=== PATIENT | male | born 1975 | race Two or more races ===

== ENCOUNTER 2019-04-02 11:22 | Inpatient (IN) | payer OTHER ==
[2019-04-02 15:53] VITALS: BMI 20.7
--- NOTE | 2019-04-02 17:26 | HP ---
"COWS - Scale Resting Pulse: 0= MI 80 or Below Sweatin=Flushed/Facial Moisture Restless Observation: 1= Difficult to Sit Still Pupil Size: 1= Pupils >than Normal (Pupils = 3 mm) Bone or Joint Aches: 1= Mild Discomfort Runny Nose/ Eye Tearin= None GI Upset > 30mins: 1= Stomach Cramp Tremor Observation: 4= Gross Tremor/Twitching Yawning Observation: 0= None Anxiety or Irritability: 1=Feels Anxious/Irritable Goose Flesh Skin: 0=Smooth Skin COWS Score: 11 CIWA Score Nausea/Vomitin Muscle Tremors: 4-Moderate,w/Arms Extend Anxiety: 3 Agitation: 1-Slight > Activity Paroxysmal Sweats: 3 (Increased facial moisture) Orientation: 1-Uncertain about Date Tacttile Disturbances: 0-None Auditory Disturbances: 0-None Visual Disturbances: 2-Mild Sensitivity Headache: 2-Mild CIWA-Ar Total Score: 19 - Admission Criteria OASAS Guidelines: Admission for Medically Managed Detox: Requires at least one of the followin. CIWA greater than 12 2. Seizures within the past 24 hours 3. Delirium tremens within the past 24 hours 4. Hallucinations within the past 24 hours 5. Acute intervention needed for co occurring medical disorder 6. Acute intervention needed for co occurring psychiatric disorder 7. Severe withdrawal that cannot be handled at a lower level of care (continued vomiting, continued diarrhea, abnormal vital signs) requiring intravenous medication and/or fluids 8. Patient presents the following: CIWA greater than 12 Admission Criteria Met: Admission criteria met Admission ROS [facility] Chief Complaint: I need detox from heroin, cocaine, and alcohol. Allergies/Adverse Reactions: Allergies Allergy/AdvReac Type Severity Reaction Status Date / Time Fish Containing Products Allergy Severe Rash Verified 04/02/19 15:41 No Known Drug Allergies Allergy Verified 04/02/19 15:41 History of Present Illness: 43 yo presents w/alcohol and opioid withdrawal symptoms seeking detox. Seen in [facility] ED and discharged today w/ a dx abscess (R) finger and started on Augmentin 875 mg PO BID. [place] made arrangements for patient to be brought to [facility] for detox. UTox: ADALBERTO/MOP/OXY/MTD PENNY: 0.0 Alcohol use since age 20. Currently drinks 1 pint vodka daily x 3 years Xanax use since age 17. States last used yesterday - states 3 sticks 2-3 days/ week. Cocaine use since age 20. Currently uses 8 bags IV daily x 5 years. Heroin/opiate use since age 20. Currently uses 8 bags IV daily x 5 years. States does not share needles or works. Sometimes reuses needles. Methadone 80 mg Daily. On [facility] MMTP. States last medicated yesterday. States has a Narcan kit. Nicotine use since age 14. Currently 3-4 cig/day. Denies seizures, blackouts. Overdose 6 months ago. States saved by 'somebody in the street'. PMHx: Abscess; (L) side heart bigger than (R) side MHHx: Anxiety; Depression. Denies thoughts of harming self or others. Last saw psychiatrist 1.5 months ago. States no meds now because homeless. SHx: Homeless/Undomiciled x 3 years. Unemployed. . Search Terms: Natividad Hayes, 1975 Search Date: 04/02/2019 05:20:15 PM The Drug Utilization Report below displays all of the controlled substance prescriptions, if any, that your patient has filled in the last twelve months. The information displayed on this report is compiled from pharmacy submissions to the Department, and accurately reflects the information as submitted by the pharmacies. This report was requested by: Khadijah Peace | Reference #: [id number] There are no results for the search terms that you entered. Search Terms: Natividad Farooqarez, 1975 Search Date: 04/02/2019 05:20:56 PM States Searched: [place], [place], [place], [place], [place], [place], [place], [place] The Drug Utilization Report below displays the controlled substance prescriptions, if any, that were dispensed in the indicated state(s). The information displayed on this report is compiled from requests submitted to other states' PMPs, and accurately reflects the information as returned by them. Blank moran indicate data not provided by other state. This report was requested by: Khadijah Peace | Reference #: [id number] There are no results for the search terms that you entered. Exam Limitations: No Limitations - Ebola screening Have you traveled outside of the country in the last 21 days: No Have you had contact with anyone from an Ebola affected area: No Have you been sick,other than usual withdrawal symptoms: Yes (Seen in ER for pain in (R) hand) Do you have a fever: No - Review of Systems Constitutional: Chills, Diaphoresis, Changes in sleep (Diifficulty staying asleep), Unintentional Wgt. Loss (r/t drug use) EENT: reports: Dental Problems (Missing teeth.), Other (Increased light sensitivity x 5 years. Has not seen an opthamologist. Encouraged to see one upon discharge.) Respiratory: reports: No Symptoms reported Cardiac: reports: No Symptoms Reported, See HPI GI: reports: Constipated (Last BN 2 days ago. Not on meds. Denies blood), Abdominal cramping : reports: No Symptoms Reported Musculoskeletal: reports: Back Pain (r/t sleeping in street) Integumentary: reports: Other (sore on foot) Neuro: reports: Headache ((R) temporal throbbing medium headache) Endocrine: reports: Increased Thirst Hematology: reports: No Symptoms Reported Psychiatric: reports: Orientated x3 (Missed date by 2), Anxious, Depressed ( Denies thoughts of harming self or others.) Patient History - Patient Medical History Hx Asthma: No Hx Chronic Obstructive Pulmonary Disease (COPD): No Hx Cardiac Disorders: No Hx Hypertension: No Hx Seizures: No Hx Diabetes: No Hx Gastrointestinal Disorders: No Hx Genitourinary Disorders: No Hx Sexually Transmitted Disorders: No Hx Renal Disease (ESRD): No Hx Human Immunodeficiency Virus (HIV): No Hx Hepatitis C: No Hx Depression: Yes (AND ANXIETY) Hx Suicide Attempt: No Hx Schizophrenia: No - Patient Surgical History Past Surgical History: Yes Hx Neurologic Surgery: No Hx Cataract Extraction: No Hx Cardiac Surgery: No Hx Lung Surgery: No Hx Breast Surgery: No Hx Breast Biopsy: No Hx Abdominal Surgery: No Hx Appendectomy: Yes (IN 1991) Hx Cholecystectomy: No Hx Genitourinary Surgery: No Hx Section: No Hx Orthopedic Surgery: No Other Surgical History: RT. INGUINAL HERNIA REPAIR IN 1991 - PPD History Previous Implant?: Yes ([address] [place] [address] - neg) Documented Results: Negative w/proof Implanted On Prior [facility] Admission?: Yes Date: 08/07/14 PPD to be Administered?: Yes - Smoking Cessation Smoking history: Current every day smoker Have you smoked in the past 12 months: Yes Aproximately how many cigarettes per day: 4 Hx Chewing Tobacco Use: No Initiated information on smoking cessation: Yes 'Breaking Loose' booklet given: 04/02/19 - Substance & Tx. History Hx Alcohol Use: Yes Hx Substance Use: Yes Substance Use Type: Alcohol, Cocaine, Heroin Hx Substance Use Treatment: Yes (detox, rehab. Currently on MMTP) - Substances abused Alprazolam (Xanax) Frequency: Daily Amount used: 3 pills Age of first use: 17 Date of last use: 04/01/19 Heroin Substance route: Injection Frequency: Daily Amount used: 8 bags Age of first use: 20 Date of last use: 04/01/19 Cocaine Substance route: Injection Frequency: Daily Amount used: 8 bags Age of first use: 20 Date of last use: 04/02/19 Alcohol Substance route: Oral Frequency: Daily Amount used: 1 pint of vodka Age of first use: Date of last use: 04/02/19 Admission Physical Exam [facility] - Vital Signs Vital Signs: Vital Signs - 24 hr 04/02/19 15:40 Temperature 97.5 F L Pulse Rate 66 Respiratory 20 Rate Blood Pressure 132/85 - Physical General Appearance: Yes: Mild Distress, Thin, Tremorous (Tremors w/ arms elevated), Sweating (Increased facial moisture), Anxious HEENTM: Yes: EOMI (Jerking movement of eyes upon lateral gaze), Hearing grossly Normal, Normocephalic, Normal Voice, SHREYAS (Pupils = 3 mm), Pharynx Normal, Other Respiratory: Yes: Lungs Clear (Pulse Ox = 99 %), Normal Breath Sounds, No Respiratory Distress Neck: Yes: No masses,lesions,Nodules, Supple Breast: Yes: Breast Exam Deferred Cardiology: Yes: Regular Rhythm, Regular Rate, S1, S2, Murmur Abdominal: Yes: Non Tender, Flat, Soft, Increased Bowel Sounds Genitourinary: Yes: Within Normal Limits Back: Yes: Normal Inspection Musculoskeletal: Yes: full range of Motion, Gait Steady Extremities: Yes: Normal Capillary Refill, Tremors, Swelling ((R) ring finger tip w/ yellowish undercolor at nail and nail bed, increased swelling, warmth, erythema tenderness), Other ((R) heel w/ soft, whitish oval lesion, aprox 1 cm w /o surrounding erythema or increased warmth.) 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 Needs dose verification. (3) Opioid dependence with withdrawal Current Visit: Yes Status: Acute Comment: Uses illicit opiates IV (4) Cardiac murmur Current Visit: Yes Status: Chronic (5) Nystagmus Current Visit: Yes Status: Acute (6) Cocaine dependence, uncomplicated Current Visit: Yes Status: Chronic Comment: Uses IV (7) Paronychia of finger of right hand Current Visit: Yes Status: Acute (8) Heel lesion Current Visit: Yes Status: Chronic Cleared for Admission [facility] - Detox or Rehab [facility] Level of Care: Medically Managed Detox Regimen/Protocol: Librium Claeared for Rehab Admission: No Breathalyzer - Breathalyzer Breathalyzer: 0 Urine Drug Screen - Test Device Lot number: [id number] Expiration date: 12/04/20 - Control Is test valid?: Yes - Results Drug screen NEGATIVE: No Urine drug screen results: ADALBERTO-Cocaine, MOP-Opiates, OXY-Oxycodone, MTD- Methadone Inpatient Rehab Admission - Rehab Decision to Admit Inpatient rehab admission?: No"
[2019-04-02] MEDS ORDERED: MAG HYDROX/AL HYDROX/SIMETH 30 ML UNIT-DOSE CUP PO PRN (18:07)
[2019-04-02] MEDS ORDERED: MAGNESIUM HYDROX 2400MG/30ML ORAL SUSPENSION 30 ML CUP PO PRN (18:07)
[2019-04-02] MEDS ORDERED: NICOTINE POLACRILEX 2 MG GUM BUC PRN (18:07)
[2019-04-02] MEDS ORDERED: MENTHOL/PHENOL 1 EACH UD MM PRN (18:07)
[2019-04-02] MEDS ORDERED: MAGNESIUM CITRATE 300 ML BOTTLE PO PRN (18:07)
[2019-04-02] MEDS ORDERED: ACETAMINOPHEN 325 MG TABLET (FP) PO PRN ×2 (18:07)
[2019-04-02] MEDS ORDERED: chlordiazePOXIDE HCL 10 MG CAPSULE PO PRN (18:07)
[2019-04-02] MEDS ORDERED: BISMUTH SUBSALICYLATE 524 MG/30 ML UD PO PRN (18:07)
[2019-04-02] MEDS ORDERED: METHADONE HCL 10 MG TABLET PO ONE (22:00)
[2019-04-02] MEDS: AMOX TR/POT CLAV 875MG/125MG TABLETS (FP) PO SCH (22:08)
[2019-04-02] MEDS: chlordiazePOXIDE HCL 25 MG CAPSULE PO SCH (22:08)
[2019-04-02] MEDS: THIAMINE HCL 100 MG TABLET (FP) PO SCH (22:09)
[2019-04-02] MEDS: MELATONIN 5 MG TABLETS PO PRN (22:09)
[2019-04-03] MEDS: chlordiazePOXIDE HCL 25 MG CAPSULE PO SCH ×3 (05:46→21:47)
[2019-04-03 10:24] LABS: ALBUMIN 3.5 g/dl (3.4-5.0); BILIRUBIN,TOTAL 0.8 mg/dL (0.2-1); BLOOD UREA NITROGEN 9.5 mg/dL (7-18); CALCIUM 8.8 mg/dL (8.5-10.1); CREATININE 0.8 mg/dL (0.55-1.3); POTASSIUM 3.9 mmol/L (3.5-5.1); TOT PROT 6.6 g/dl (6.4-8.2)
[2019-04-03] MEDS: PRENATAL VITAMINS W/ FOLIC ACID TABLET (FP) PO SCH (10:32)
[2019-04-03] MEDS: METHADONE HCL 40 MG DISPERSABLE TABLET PO SCH (10:32)
[2019-04-03] MEDS: AMOX TR/POT CLAV 875MG/125MG TABLETS (FP) PO SCH ×2 (10:32→21:47)
[2019-04-03 10:33] LABS: MCH 32.3 pg (25.7-33.7); MCHC 33.4 g/dl (32.0-35.9); MEAN CELL VOLUME 96.8 fl (80-96); MEAN PLT VOLUME 9.1 fl (7.5-11.1); PLATELET COUNT 249 K/MM3 (134-434); RBC 3.72 M/mm3 (4.00-5.60); RDW 13.4 % (11.9-15.9); WHITE BLOOD COUNT 5.4 K/mm3 (4.0-10.0)
--- NOTE | 2019-04-03 11:38 | CONSULT ---
[facility] Psychiatric Consult - Data Date of interview: 04/03/19 Admission source: [facility] Identifying data: Readmission to [facility] for this 43 y/o male self- referred fore detoxification. MARGUERITE issues : heroin, benzodiazepine, cocaine, cannabis, nicotine). Interviewed at [address] [place] [address]. Patient is single, father of one, homeless, unemployed and deprived of income. Substance Abuse History: Discussed in this session. Details in current [facility] report as follows : Smoking history: Current every day smoker. Have you smoked in the past 12 months: Yes. Aproximately how many cigarettes per day: 4. Hx Chewing Tobacco Use: No. Initiated information on smoking cessation: Yes. ' Breaking Loose' booklet given: 04/02/19. - Substance & Tx. History. Hx Alcohol Use: Yes. Hx Substance Use: Yes. Substance Use Type: Alcohol, Cocaine , Heroin. Hx Substance Use Treatment: Yes (detox, rehab. Currently on MMTP). - Substances abused. Alprazolam (Xanax). Frequency: Daily. Amount used: 3 pills. Age of first use: 17. Date of last use: 04/01/19. Heroin. Substance route: Injection. Frequency: Daily. Amount used: 8 bags. Age of first use: 20. Date of last use: 04/01/19. Cocaine. Substance route: Injection. Frequency: Daily. Amount used: 8 bags. Age of first use: 20. Date of last use: 04/02/19. Alcohol. Substance route: Oral. Frequency: Daily. Amount used: 1 pint of vodka. Age of first use: 20. Date of last use: 04/02/19 Medical History: Remarkable for a history of right inguinal herniorraphy. Current infection of the fourth finger of right hand (paronychia). Psychiatric History: Vague and evasive historian. No reported history of psychiatric hospitalizations. Patient states that he sees a psychiatrist at a venue called [facility] in the [place]. Medicated with seroquel + Buspar. Reportedly diagnosed with MDD and Anxiety. Currently on methadone maintenance ( 80 mg/day). Mr Hayes denies history of suicide attempts. Physical/Sexual Abuse/Trauma History: Patient denies. Additional Comment: Urine drug screen results: ADALBERTO-Cocaine, MOP-Opiates, OXY- Oxycodone, MTD-Methadone. Noted. Mental Status Exam - Mental Status Exam Alert and Oriented to: Time, Place, Person Cognitive Function: Good Patient Appearance: Well Groomed Mood: Nervous, Withdrawn, Hopeful Affect: Appropriate, Normal Range Patient Behavior: Fatigued, Cooperative Speech Pattern: Clear Voice Loudness: Normal Thought Process: Goal Oriented Thought Disorder: Not Present Hallucinations: Denies Suicidal Ideation: Denies Insight/Judgement: Poor Sleep: Poorly, Difficulty falling asleep Appetite: Good Muscle strength/Tone: Normal Gait/Station: Normal Psychiatric Findings - Problem List ([place] 1, 2,3) (1) Alcohol dependence with uncomplicated withdrawal Current Visit: Yes Status: Acute (2) Opioid dependence on agonist therapy Current Visit: Yes Status: Chronic (3) Benzodiazepine dependence Current Visit: Yes Status: Chronic (4) Cocaine dependence, uncomplicated Current Visit: Yes Status: Chronic Comment: Uses IV (5) Nicotine dependence Current Visit: Yes Status: Chronic (6) Substance induced mood disorder Current Visit: Yes Status: Chronic (7) Insomnia Current Visit: Yes Status: Chronic - Initial Treatment Plan Initial Treatment Plan: Psychoeducation. Sleep hygiene. Detoxification. AA/NA meetings. Seroquel is held (abnormal liver function). Buspar 5 mg po tid is ordered at patient's request. Side effects/benefits discussed with patient. Verbal consent given to MD. Jain.
[2019-04-03] MEDS ORDERED: FLU VACCINE QUAD 60 MCG/0.5 ML (MDV 19-20) IM ONE (12:00)
[2019-04-03] MEDS: BACITRACIN/POLYMYXIN B SULFATE 15 GM TUBE TP SCH ×2 (13:26→21:47)
--- NOTE | 2019-04-03 13:58 | PN ---
[facility] CIWA - CIWA Score Nausea/Vomitin-No Nausea/No Vomiting Muscle Tremors: 3 Anxiety: 3 Agitation: 3 Paroxysmal Sweats: 2 Orientation: 0-Oriented Tacttile Disturbances: 0-None Auditory Disturbances: 2-Mild Harshness/Frighten Visual Disturbances: 0-None Headache: 1-Very Mild CIWA-Ar Total Score: 14 S COWS - Scale Resting Pulse: 1= [place] 81-100 Sweatin= Chills/Flushing Restless Observation: 1= Difficult to Sit Still Pupil Size: 0= Normal to Room Light Bone or Joint Aches: 2= Severe Diffuse Aches Runny Nose/ Eye Tearin= None GI Upset > 30mins: 0= None Tremor Observation of Outstretched Hands: 2= Slight Tremor Visible Yawning Observation: 1= 1-2x During Session Anxiety or Irritability: 2=Irritable/Anxious Goose Flesh Skin: 3=Piloerection COWS Score: 13 S Progress Note (SOAP) Subjective: Body Aches, Tremors, Anxious, Sweating. Objective: PATIENT A & O X 3, OBSERVED AMBULATING ON DETOX UNIT UNASSISTED. IN NO ACUTE DISTRESS. 04/03/19 13:56 Vital Signs Temperature 97.2 F L 04/03/19 13:07 Pulse Rate 81 04/03/19 13:07 Respiratory Rate 16 04/03/19 13:07 Blood Pressure 105/76 04/03/19 13:07 O2 Sat by Pulse Oximetry (%) Laboratory Tests 04/03/19 04/03/19 04/03/19 07:40 07:40 07:40 WBC 5.4 RBC 3.72 L Hgb 12.0 Hct 36.0 MCV 96.8 H MCH 32.3 MCHC 33.4 RDW 13.4 Plt Count 249 MPV 9.1 Sodium 141 Potassium 3.9 Chloride 106 Carbon Dioxide 28 Anion Gap 7 L BUN 9.5 Creatinine 0.8 Est GFR (CKD-EPI)AfAm 125.04 Est GFR (CKD-EPI)NonAf 107.88 Random Glucose 116 H Calcium 8.8 Total Bilirubin 0.8 AST 186 H ALT 320 H Alkaline Phosphatase 101 Total Protein 6.6 Albumin 3.5 RPR Titer Nonreactive LABS NOTED. Assessment: 04/03/19 13:57 WITHDRAWAL SYMPTOMS. ELEVATED AST LEVEL. ELEVATED ALT LEVEL. Plan: CONTINUE DETOX. REPEAT AST AND ALT LEVELS ORDERED FOR TOMORROW FOR ELEVATED AST AND ALT LEVELS NOTED ON DETOX ADMISSION LABORATORY ASSESSMENT.
[2019-04-03] MEDS: NICOTINE 14 MG/24 HOURS TOPICAL PATCH TD SCH (14:54)
[2019-04-03] MEDS: busPIRone HCL 5 MG TABLET PO SCH (21:46)
[2019-04-03] MEDS: THIAMINE HCL 100 MG TABLET (FP) PO SCH (21:47)
[2019-04-03] MEDS: IBUPROFEN 600 MG TABLET (FP) PO PRN (23:15)
[2019-04-04] MEDS: chlordiazePOXIDE 5 MG CAPSULE PO SCH ×3 (05:40→21:58)
[2019-04-04] MEDS: METHADONE HCL 40 MG DISPERSABLE TABLET PO SCH (05:41)
[2019-04-04] MEDS: busPIRone HCL 5 MG TABLET PO SCH ×3 (05:43→21:58)
--- NOTE | 2019-04-04 10:04 | PN ---
[facility] CIWA - CIWA Score Nausea/Vomitin-Mild Nausea/No Vomiting Muscle Tremors: 3 Anxiety: 2 Agitation: 1-Slight > Activity Paroxysmal Sweats: 1-Minimal Palms Moist Orientation: 0-Oriented Tacttile Disturbances: 1-Very Mild Itch/Numbness Auditory Disturbances: 0-None Visual Disturbances: 0-None Headache: 2-Mild CIWA-Ar Total Score: 11 S Progress Note (SOAP) Subjective: doing well with librium detox regimen received methadone 80 mg po today feeling better sitting on the edge of the bed eating breakfast no trouble chewing no trouble swallowing Objective: 04/04/19 10:02 Vital Signs Temperature 97.9 F 04/04/19 09:34 Pulse Rate 67 04/04/19 09:34 Respiratory Rate 18 04/04/19 09:34 Blood Pressure 96/61 04/04/19 09:34 O2 Sat by Pulse Oximetry (%) Laboratory Last Values WBC 5.4 K/mm3 (4.0-10.0) 04/03/19 07:40 RBC 3.72 M/mm3 (4.00-5.60) L 04/03/19 07:40 Hgb 12.0 GM/dL (11.7-16.9) 04/03/19 07:40 Hct 36.0 % (35.4-49) 04/03/19 07:40 MCV 96.8 fl (80-96) H 04/03/19 07:40 MCH 32.3 pg (25.7-33.7) 04/03/19 07:40 MCHC 33.4 g/dl (32.0-35.9) 04/03/19 07:40 RDW 13.4 % (11.9-15.9) 04/03/19 07:40 Plt Count 249 K/MM3 (134-434) 04/03/19 07:40 MPV 9.1 fl (7.5-11.1) 04/03/19 07:40 Sodium 141 mmol/L (136-145) 04/03/19 07:40 Potassium 3.9 mmol/L (3.5-5.1) 04/03/19 07:40 Chloride 106 mmol/L (98-107) 04/03/19 07:40 Carbon Dioxide 28 mmol/L (21-32) 04/03/19 07:40 Anion Gap 7 MMOL/L (8-16) L 04/03/19 07:40 BUN 9.5 mg/dL (7-18) 04/03/19 07:40 Creatinine 0.8 mg/dL (0.55-1.3) 04/03/19 07:40 Est GFR (CKD-EPI)AfAm 125.04 04/03/19 07:40 Est GFR (CKD-EPI)NonAf 107.88 04/03/19 07:40 Random Glucose 116 mg/dL (74-106) H 04/03/19 07:40 Calcium 8.8 mg/dL (8.5-10.1) 04/03/19 07:40 Total Bilirubin 0.8 mg/dL (0.2-1) 04/03/19 07:40 AST 186 U/L (15-37) H 04/03/19 07:40 ALT 320 U/L (13-61) H 04/03/19 07:40 Alkaline Phosphatase 101 U/L (45-117) 04/03/19 07:40 Total Protein 6.6 g/dl (6.4-8.2) 04/03/19 07:40 Albumin 3.5 g/dl (3.4-5.0) 04/03/19 07:40 RPR Titer Nonreactive (NONREACTIVE) 04/03/19 07:40 lab noted ast elevation 04/04/19 10:02 repeat ast pending Assessment: 04/04/19 10:02 alcohol and benzo withdrawal sx Plan: continue librium detox regimen encourage to use ativan for alcohol and benzo detox regimen patient agree to consider the possibility of ativan
[2019-04-04] MEDS: AMOX TR/POT CLAV 875MG/125MG TABLETS (FP) PO SCH ×2 (10:12→21:58)
[2019-04-04] MEDS: PRENATAL VITAMINS W/ FOLIC ACID TABLET (FP) PO SCH (10:12)
[2019-04-04] MEDS: BACITRACIN/POLYMYXIN B SULFATE 15 GM TUBE TP SCH ×2 (10:13→21:57)
[2019-04-04] MEDS: IBUPROFEN 600 MG TABLET (FP) PO PRN (10:15)
[2019-04-04 10:52] LABS: SGOT/AST 170 U/L (15-37); SGPT/ALT 303 U/L (13-61)
[2019-04-04] MEDS: LIDOCAINE 5% TOPICAL PATCH TP SCH (11:44)
[2019-04-04] MEDS: METHOCARBAMOL 500 MG TABLET PO SCH ×2 (11:44→21:58)
[2019-04-04] MEDS: NICOTINE 14 MG/24 HOURS TOPICAL PATCH TD SCH (11:45)
[2019-04-04] MEDS: THIAMINE HCL 100 MG TABLET (FP) PO SCH (21:58)
[2019-04-04] MEDS: MELATONIN 5 MG TABLETS PO PRN (21:58)
[2019-04-04] MEDS: LIDOCAINE PATCH REMOVAL MC SCH (21:58)
[2019-04-04] MEDS ORDERED: QUEtiapine FUMARATE 50 MG TABLET PO ONE (22:00)
[2019-04-05] MEDS ORDERED: chlordiazePOXIDE HCL 10 MG CAPSULE PO PRN
[2019-04-05] MEDS: chlordiazePOXIDE HCL 10 MG CAPSULE PO SCH ×3 (05:43→22:14)
[2019-04-05] MEDS: busPIRone HCL 5 MG TABLET PO SCH ×3 (05:43→22:14)
[2019-04-05] MEDS: METHADONE HCL 40 MG DISPERSABLE TABLET PO SCH (05:44)
--- NOTE | 2019-04-05 09:38 | PN ---
[facility] CIWA - CIWA Score Nausea/Vomitin-No Nausea/No Vomiting Muscle Tremors: 2 Anxiety: 2 Agitation: 2 Paroxysmal Sweats: 1-Minimal Palms Moist Orientation: 0-Oriented Tacttile Disturbances: 1-Very Mild Itch/Numbness Auditory Disturbances: 0-None Visual Disturbances: 0-None Headache: 0-None Present CIWA-Ar Total Score: 8 S Progress Note (SOAP) Subjective: doing well with librium detox regimen ambulating on hallway ate breakfast discuss aftercare with staff patient prefers [facility] for alcohol and benzo recovery Objective: 04/05/19 09:40 Vital Signs Temperature 96.4 F L 04/05/19 09:06 Pulse Rate 75 04/05/19 09:06 Respiratory Rate 18 04/05/19 09:06 Blood Pressure 97/60 04/05/19 09:06 O2 Sat by Pulse Oximetry (%) Laboratory Last Values WBC 5.4 K/mm3 (4.0-10.0) 04/03/19 07:40 RBC 3.72 M/mm3 (4.00-5.60) L 04/03/19 07:40 Hgb 12.0 GM/dL (11.7-16.9) 04/03/19 07:40 Hct 36.0 % (35.4-49) 04/03/19 07:40 MCV 96.8 fl (80-96) H 04/03/19 07:40 MCH 32.3 pg (25.7-33.7) 04/03/19 07:40 MCHC 33.4 g/dl (32.0-35.9) 04/03/19 07:40 RDW 13.4 % (11.9-15.9) 04/03/19 07:40 Plt Count 249 K/MM3 (134-434) 04/03/19 07:40 MPV 9.1 fl (7.5-11.1) 04/03/19 07:40 Sodium 141 mmol/L (136-145) 04/03/19 07:40 Potassium 3.9 mmol/L (3.5-5.1) 04/03/19 07:40 Chloride 106 mmol/L (98-107) 04/03/19 07:40 Carbon Dioxide 28 mmol/L (21-32) 04/03/19 07:40 Anion Gap 7 MMOL/L (8-16) L 04/03/19 07:40 BUN 9.5 mg/dL (7-18) 04/03/19 07:40 Creatinine 0.8 mg/dL (0.55-1.3) 04/03/19 07:40 Est GFR (CKD-EPI)AfAm 125.04 04/03/19 07:40 Est GFR (CKD-EPI)NonAf 107.88 04/03/19 07:40 Random Glucose 116 mg/dL (74-106) H 04/03/19 07:40 Calcium 8.8 mg/dL (8.5-10.1) 04/03/19 07:40 Total Bilirubin 0.8 mg/dL (0.2-1) 04/03/19 07:40 AST 170 U/L (15-37) H 04/04/19 07:30 ALT 303 U/L (13-61) H 04/04/19 07:30 Alkaline Phosphatase 101 U/L (45-117) 04/03/19 07:40 Total Protein 6.6 g/dl (6.4-8.2) 04/03/19 07:40 Albumin 3.5 g/dl (3.4-5.0) 04/03/19 07:40 RPR Titer Nonreactive (NONREACTIVE) 04/03/19 07:40 lab noted ast gradually subsided to 170 right ring finger continue warm socks and augmentin po discharged with augmentin po and lab report to methadone maintenance program for ast follow up Assessment: 04/05/19 09:42 alcohol and benzo withdrawal sx Plan: continue librium detox regimen and methadone maintenance at 80mg po daily
[2019-04-05] MEDS: LIDOCAINE 5% TOPICAL PATCH TP SCH (10:12)
[2019-04-05] MEDS: PRENATAL VITAMINS W/ FOLIC ACID TABLET (FP) PO SCH (10:12)
[2019-04-05] MEDS: AMOX TR/POT CLAV 875MG/125MG TABLETS (FP) PO SCH ×2 (10:12→22:14)
[2019-04-05] MEDS: METHOCARBAMOL 500 MG TABLET PO SCH ×2 (10:12→22:14)
[2019-04-05] MEDS: NICOTINE 14 MG/24 HOURS TOPICAL PATCH TD SCH (10:13)
[2019-04-05] MEDS: BACITRACIN/POLYMYXIN B SULFATE 15 GM TUBE TP SCH ×2 (10:15→22:14)
--- NOTE | 2019-04-05 13:27 | EKG ---
Test Reason : Blood Pressure : / mmHG Vent. Rate : 054 BPM Atrial Rate : 054 BPM P-R Int : 122 ms QRS Dur : 096 ms QT Int : 462 ms P-R-T Axes : 069 073 070 degrees QTc Int : 438 ms SINUS BRADYCARDIA WITH SINUS ARRHYTHMIA INCOMPLETE RIGHT BUNDLE BRANCH BLOCK BORDERLINE ECG NO PREVIOUS ECGS AVAILABLE Confirmed by IFRAH MCCALL MD ([id number]) on 04/05/2019 1:27:23 PM Referred By: Confirmed By:IFRAH MCCALL MD
[2019-04-05 16:25] LABS: PH,URINE 5.5 (5.0-8.0); URINE APPEARANCE CLEAR; URINE BILIRUBIN NEGATIVE (NEGATIVE); URINE COLOR YELLOW; URINE GLUCOSE (UA) NEGATIVE (NEGATIVE); URINE KETONE NEGATIVE (NEGATIVE); URINE LEUK ESTERASE NEGATIVE (NEGATIVE); URINE NITRITE NEGATIVE (NEGATIVE); URINE PROTEIN NEGATIVE (NEGATIVE); URINE UROBILINOGEN 0.2 mg/dL (0.2-1.0)
[2019-04-05] MEDS: THIAMINE HCL 100 MG TABLET (FP) PO SCH (22:14)
[2019-04-05] MEDS: LIDOCAINE PATCH REMOVAL MC SCH (22:15)
[2019-04-05] MEDS: MELATONIN 5 MG TABLETS PO PRN (22:15)
[2019-04-06] MEDS ORDERED: chlordiazePOXIDE HCL 10 MG CAPSULE PO ONE (05:00)
[2019-04-06] MEDS: METHADONE HCL 40 MG DISPERSABLE TABLET PO SCH (05:13)
[2019-04-06] MEDS: busPIRone HCL 5 MG TABLET PO SCH (05:13)
[2019-04-06 06:01] VITALS: TEMP 98.2
[2019-04-06 09:04] VITALS: BP 107/74; PULSE 88
[2019-04-06] MEDS: AMOX TR/POT CLAV 875MG/125MG TABLETS (FP) PO SCH (10:18)
[2019-04-06] MEDS: METHOCARBAMOL 500 MG TABLET PO SCH (10:18)
[2019-04-06] MEDS: PRENATAL VITAMINS W/ FOLIC ACID TABLET (FP) PO SCH (10:18)
[2019-04-06] MEDS: NICOTINE 14 MG/24 HOURS TOPICAL PATCH TD SCH (10:19)
[2019-04-06] MEDS: LIDOCAINE 5% TOPICAL PATCH TP SCH (10:20)
--- NOTE | 2019-04-06 11:57 | DS ---
[facility] Detox Discharge Summary Admission Date: 04/02/19 Discharge Date: 04/06/19 - History Present History: Alcohol Dependence, Cocaine Dependence, Opioid Dependence, Sedative Dependence, MMTP Additional Comments: PATIENT GOING TO [facility] ([facility]) FOR AFTERCARE. PATIENT WAS DISCHARGED FROM DETOX UNIT TO BE TAKEN OVER TO REHAB UNIT IN STABLE MEDICAL CONDITION. Pertinent Past History: Depression, Anxiety, Heel Lesion, Paronychia Of Finger Of Right Hand, M.M.T.P., Nystagmus, Insomnia, Elevated AST Level, Elevated ALT Level. - Physical Exam Results Vital Signs: Vital Signs Temperature 98.2 F 04/06/19 09:03 Pulse Rate 88 04/06/19 09:03 Respiratory Rate 16 04/06/19 09:03 Blood Pressure 107/74 04/06/19 09:03 O2 Sat by Pulse Oximetry (%) Pertinent Admission Physical Exam Findings: WITHDRAWAL SYMPTOMS. Laboratory Tests 04/03/19 04/03/19 04/03/19 07:40 07:40 07:40 WBC 5.4 RBC 3.72 L Hgb 12.0 Hct 36.0 MCV 96.8 H MCH 32.3 MCHC 33.4 RDW 13.4 Plt Count 249 MPV 9.1 Sodium 141 Potassium 3.9 Chloride 106 Carbon Dioxide 28 Anion Gap 7 L BUN 9.5 Creatinine 0.8 Est GFR (CKD-EPI)AfAm 125.04 Est GFR (CKD-EPI)NonAf 107.88 Random Glucose 116 H Calcium 8.8 Total Bilirubin 0.8 AST 186 H ALT 320 H Alkaline Phosphatase 101 Total Protein 6.6 Albumin 3.5 Urine Color Urine Appearance Urine pH Ur Specific [place] Urine Protein Urine Glucose (UA) Urine Ketones Urine Blood Urine Nitrite Urine Bilirubin Urine Urobilinogen Ur Leukocyte Esterase RPR Titer Nonreactive 04/04/19 04/05/19 07:30 14:18 WBC RBC Hgb Hct MCV MCH MCHC RDW Plt Count MPV Sodium Potassium Chloride Carbon Dioxide Anion Gap BUN Creatinine Est GFR (CKD-EPI)AfAm Est GFR (CKD-EPI)NonAf Random Glucose Calcium Total Bilirubin AST 170 H ALT 303 H Alkaline Phosphatase Total Protein Albumin Urine Color Yellow Urine Appearance Clear Urine pH 5.5 D Ur Specific [place] 1.017 Urine Protein Negative Urine Glucose (UA) Negative Urine Ketones Negative Urine Blood Negative Urine Nitrite Negative Urine Bilirubin Negative Urine Urobilinogen 0.2 Ur Leukocyte Esterase Negative RPR Titer LABS NOTED. - Treatment Hospital Course: Detox Protocol Followed, Detoxed Safely, Responded well, Discharged Condition Good, Rehab Referral Accepted Patient has Accepted a Rehab Referral to: [facility] ([place], [place]). - Medication Discharge Medications: Ambulatory Orders Amox-Tr/K Cl [Augmentin 875-125mg Tablet -] 1 tab PO BID 04/02/19 Amox-Tr/K Cl [Augmentin 875-125mg Tablet -] 1 tab PO BID #10 tablet 04/05/19 - Diagnosis (1) Alcohol dependence with uncomplicated withdrawal Current Visit: Yes Status: Acute (2) Nystagmus Current Visit: Yes Status: Acute (3) Opioid dependence with withdrawal Current Visit: Yes Status: Acute (4) Paronychia of finger of right hand Current Visit: Yes Status: Acute (5) Cardiac murmur Current Visit: Yes Status: Chronic (6) Cocaine dependence, uncomplicated Current Visit: Yes Status: Chronic (7) Heel lesion Current Visit: Yes Status: Chronic (8) Methadone maintenance therapy patient Current Visit: Yes Status: Chronic (9) Benzodiazepine dependence Current Visit: Yes Status: Chronic (10) Insomnia Current Visit: Yes Status: Chronic Qualifiers: Insomnia type: unspecified Qualified Code(s): G47.00 - Insomnia, unspecified (11) Substance induced mood disorder Current Visit: Yes Status: Chronic (12) Elevated alanine aminotransferase (ALT) level Current Visit: Yes Status: Acute (13) Elevated aspartate aminotransferase level Current Visit: Yes Status: Acute - AMA Did Patient Leave Against Medical Advice: No S CIWA - CIWA Score Nausea/Vomitin-No Nausea/No Vomiting Muscle Tremors: None Anxiety: 2 Agitation: 0-Normal Activity Paroxysmal Sweats: No Perspiration Orientation: 0-Oriented Tacttile Disturbances: 0-None Auditory Disturbances: 0-None Visual Disturbances: 0-None Headache: 0-None Present CIWA-Ar Total Score: 2 S COWS - Scale Resting Pulse: 1= [place] 81-100 Sweatin= No chills or Flushing Restless Observation: 1= Difficult to Sit Still Pupil Size: 0= Normal to Room Light Bone or Joint Aches: 1= Mild Discomfort Runny Nose/ Eye Tearin= None GI Upset > 30mins: 0= None Tremor Observation of Outstretched Hands: 0= None Yawning Observation: 0= None Anxiety or Irritability: 2=Irritable/Anxious Goose Flesh Skin: 0=Smooth Skin COWS Score: 5
[2019-04-06] MEDS: BACITRACIN/POLYMYXIN B SULFATE 15 GM TUBE TP SCH (12:03)
== END 2019-04-06 12:07 | disposition other institution (70) | DRG 773 ==
LOC: YASAS 11:22 → Y3N 18:19
PROVIDERS: ADMIT Surgery; ATTEND Surgery
PROC: HZ2ZZZZ Detoxification Services for Substance Abuse Treatment (ICD-10-PCS; principal; 2019-04-02)
DX: F11.23 Opioid dependence with withdrawal (principal); F10.230 Alcohol dependence with withdrawal, uncomplicated; F13.230 Sedative, hypnotic or anxiolytic dependence with withdrawal, uncomplicated; F14.20 Cocaine dependence, uncomplicated; F17.210 Nicotine dependence, cigarettes, uncomplicated; F19.24 Other psychoactive substance dependence with psychoactive substance-induced mood disorder; H55.00 Unspecified nystagmus; R01.1 Cardiac murmur, unspecified; L03.011 Cellulitis of right finger; L98.8 Other specified disorders of the skin and subcutaneous tissue; G47.00 Insomnia, unspecified; R74.0 Nonspecific elevation of levels of transaminase and lactic acid dehydrogenase [LDH]; Z91.013 Allergy to seafood; Z59.0 Homelessness
CPT/HCPCS: 36415; 80053; 81003; 84450; 84460; 85027; 86593; 93005; 93010; G0008; Q2036

== ENCOUNTER 2019-04-06 12:41 | Inpatient (IN) | payer OTHER ==
--- NOTE | 2019-04-06 12:09 | HP ---
[facility] Rehab Assess/Revision - Admission History Ad[facility] to Rehab [facility] Date of Admission to Rehab: 04/06/2019 - Vital signs Vital Signs: NOTED; STABLE. - Findings Detox History & Physical reviewed: Yes Concur with findings: Yes Comments/Additional Findings: PATIENT'S MEDICAL / MEDICATION HISTORY REVIEWED PRIOR TO DISCHARGE FROM DETOX UNIT. WOUND CARE FOR ABSCESS OF RING FINGER OF RIGHT HAND (INCLUDING TOPICAL TREATMENT AND PO AUGMENTIN) AND FOR WOUND ON HEEL OF RIGHT FOOT TO CONTINUE FOR FIRST FEW DAYS OF ADMISSION TO REHAB UNIT. PATIENT WAS DISCHARGED FROM DETOX UNIT TO BE TAKEN OVER TO REHAB UNIT IN STABLE MEDICAL CONDITION. Inpatient Rehab Admission - Rehab Decision to Admit Inpatient rehab admission?: Yes - Initial Determination Are CD services needed?: Yes Free of communicable disease: Yes Not in need of hospitalization: Yes - Rehab Admission Criteria Previous failed treatment: Yes Poor recovery environment: Yes Comorbidities: Yes Lacks judgement: No Patient is meeting Inpatient Rehab admission criteria:: Yes
[~2019-04-06 12:41] MED LIST: MAG HYDROX/AL HYDROX/SIMETH 30 ML UNIT-DOSE CUP PO PRN; MAGNESIUM CITRATE 300 ML BOTTLE PO PRN; MAGNESIUM HYDROX 2400MG/30ML ORAL SUSPENSION 30 ML CUP PO PRN; MENTHOL/PHENOL 1 EACH UD MM PRN; NICOTINE POLACRILEX 2 MG GUM BUC PRN; P-EPHED 60MG/TRIPROLIDI 2.5MG TABLET PO PRN; guaiFENesin 200 MG/10 ML 10 ML UNIT-DOSE CUPS PO PRN
[2019-04-06] MEDS: IBUPROFEN 400 MG TABLET (FP) PO PRN ×2 (14:31→23:50)
--- NOTE | 2019-04-06 15:27 | PN ---
[facility] Progress Note Note: Pt is a 43 y/o pt admitted this afternoon from [address] [place] [address] to rehab. Pt is c /o body/back pain and requesting for muscle relaxer. Oob ambulating with steady gait but appears thin, fatigue and in pain. pt is on Augmentin 875 mg po bid x 4 more days for abscess of right ring finger and wound of right heel a per detox note/MD Re-Assessment document. Vital Signs - 24 hr 04/06/19 12:49 Temperature 97.5 F L Pulse Rate 81 Respiratory 18 Rate Blood Pressure 96/69 A/P s/p detox body aches wound of right heel abscess of right ring finger Motrin prn for pain add flexeril 10 mg po tid prn for muscle spasms increase po fluids as tolerated. Continue Abx tx till finishe. bacitracin ointment to affected areas as directed.
[2019-04-06] MEDS ORDERED: AMOX TR/POT CLAV 875MG/125MG TABLETS (FP) ONE (18:32)
[2019-04-06] MEDS: AMOX TR/POT CLAV 875MG/125MG TABLETS (FP) PO SCH (18:33)
[2019-04-06] MEDS: BACITRACIN/POLYMYXIN B SULFATE 15 GM TUBE TP SCH (21:48)
[2019-04-06] MEDS: MELATONIN 5 MG TABLETS PO PRN (21:49)
[2019-04-06] MEDS: THIAMINE HCL 100 MG TABLET (FP) PO SCH (21:49)
[2019-04-06] MEDS ORDERED: CYCLOBENZAPRINE HCL 10 MG TABLET (FP) ONE (21:50)
[2019-04-06] MEDS: CYCLOBENZAPRINE HCL 10 MG TABLET (FP) PO PRN (21:51)
[2019-04-07] MEDS: AMOX TR/POT CLAV 875MG/125MG TABLETS (FP) PO SCH ×2 (07:03→16:59)
[2019-04-07] MEDS: METHADONE HCL 40 MG DISPERSABLE TABLET PO SCH (07:03)
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
[2019-04-07] MEDS: PRENATAL VITAMINS W/ FOLIC ACID TABLET (FP) PO SCH (10:21)
[2019-04-07] MEDS: BACITRACIN/POLYMYXIN B SULFATE 15 GM TUBE TP SCH ×2 (10:21→21:43)
[2019-04-07] MEDS: NICOTINE 14 MG/24 HOURS TOPICAL PATCH TD SCH (10:21)
[2019-04-07] MEDS: CYCLOBENZAPRINE HCL 10 MG TABLET (FP) PO PRN ×2 (10:22→21:45)
[2019-04-07] MEDS: busPIRone HCL 5 MG TABLET PO SCH ×2 (14:59→21:44)
[2019-04-07] MEDS: BENZOCAINE 20 % GEL TUBE MM SCH ×2 (16:57→21:42)
[2019-04-07] MEDS: QUEtiapine FUMARATE 100 MG TABLET (FP) PO SCH (21:42)
[2019-04-07] MEDS: THIAMINE HCL 100 MG TABLET (FP) PO SCH (21:44)
[2019-04-07] MEDS: MELATONIN 5 MG TABLETS PO PRN (21:44)
[2019-04-08] MEDS: METHADONE HCL 40 MG DISPERSABLE TABLET PO SCH (06:58)
[2019-04-08] MEDS: busPIRone HCL 5 MG TABLET PO SCH ×3 (06:58→21:58)
[2019-04-08] MEDS: CYCLOBENZAPRINE HCL 10 MG TABLET (FP) PO PRN ×3 (07:01→22:00)
[2019-04-08] MEDS: BENZOCAINE 20 % GEL TUBE MM SCH ×4 (07:02→21:57)
[2019-04-08] MEDS: AMOX TR/POT CLAV 875MG/125MG TABLETS (FP) PO SCH ×2 (07:03→17:00)
[2019-04-08] MEDS: NICOTINE 14 MG/24 HOURS TOPICAL PATCH TD SCH (10:08)
[2019-04-08] MEDS: BACITRACIN/POLYMYXIN B SULFATE 15 GM TUBE TP SCH ×2 (10:10→21:58)
[2019-04-08] MEDS: PRENATAL VITAMINS W/ FOLIC ACID TABLET (FP) PO SCH (11:08)
[2019-04-08] MEDS: THIAMINE HCL 100 MG TABLET (FP) PO SCH (21:58)
[2019-04-08] MEDS: QUEtiapine FUMARATE 100 MG TABLET (FP) PO SCH (21:58)
[2019-04-09] MEDS: BENZOCAINE 20 % GEL TUBE MM SCH ×4 (04:00→21:48)
[2019-04-09] MEDS: METHADONE HCL 40 MG DISPERSABLE TABLET PO SCH (06:46)
[2019-04-09] MEDS: CYCLOBENZAPRINE HCL 10 MG TABLET (FP) PO PRN ×3 (06:47→21:47)
[2019-04-09] MEDS: busPIRone HCL 5 MG TABLET PO SCH ×3 (06:48→21:47)
[2019-04-09] MEDS: AMOX TR/POT CLAV 875MG/125MG TABLETS (FP) PO SCH ×2 (07:24→17:42)
[2019-04-09] MEDS: NICOTINE 14 MG/24 HOURS TOPICAL PATCH TD SCH (10:54)
[2019-04-09] MEDS: PRENATAL VITAMINS W/ FOLIC ACID TABLET (FP) PO SCH (10:54)
[2019-04-09] MEDS: BACITRACIN/POLYMYXIN B SULFATE 15 GM TUBE TP SCH ×2 (10:54→21:48)
[2019-04-09] MEDS: QUEtiapine FUMARATE 100 MG TABLET (FP) PO SCH (21:47)
[2019-04-09] MEDS: THIAMINE HCL 100 MG TABLET (FP) PO SCH (21:47)
[2019-04-10] MEDS: BENZOCAINE 20 % GEL TUBE MM SCH ×4 (05:19→21:47)
[2019-04-10] MEDS: METHADONE HCL 40 MG DISPERSABLE TABLET PO SCH (06:50)
[2019-04-10] MEDS: CYCLOBENZAPRINE HCL 10 MG TABLET (FP) PO PRN ×3 (06:51→21:47)
[2019-04-10] MEDS: busPIRone HCL 5 MG TABLET PO SCH ×3 (06:51→21:47)
[2019-04-10] MEDS: AMOX TR/POT CLAV 875MG/125MG TABLETS (FP) PO SCH (07:05)
[2019-04-10] MEDS: BACITRACIN/POLYMYXIN B SULFATE 15 GM TUBE TP SCH ×2 (10:48→21:48)
[2019-04-10] MEDS: PRENATAL VITAMINS W/ FOLIC ACID TABLET (FP) PO SCH (10:48)
[2019-04-10] MEDS: NICOTINE 14 MG/24 HOURS TOPICAL PATCH TD SCH (10:48)
[2019-04-10] MEDS: THIAMINE HCL 100 MG TABLET (FP) PO SCH (21:47)
[2019-04-10] MEDS: QUEtiapine FUMARATE 100 MG TABLET (FP) PO SCH (21:47)
[2019-04-11] MEDS: BENZOCAINE 20 % GEL TUBE MM SCH ×4 (06:07→21:46)
[2019-04-11] MEDS: busPIRone HCL 5 MG TABLET PO SCH ×3 (06:52→21:44)
[2019-04-11] MEDS: CYCLOBENZAPRINE HCL 10 MG TABLET (FP) PO PRN ×3 (06:52→21:45)
[2019-04-11] MEDS: METHADONE HCL 40 MG DISPERSABLE TABLET PO SCH (06:53)
[2019-04-11] MEDS: PRENATAL VITAMINS W/ FOLIC ACID TABLET (FP) PO SCH (10:40)
[2019-04-11] MEDS: NICOTINE 14 MG/24 HOURS TOPICAL PATCH TD SCH (10:40)
[2019-04-11] MEDS: IBUPROFEN 400 MG TABLET (FP) PO PRN (10:41)
[2019-04-11] MEDS: BACITRACIN/POLYMYXIN B SULFATE 15 GM TUBE TP SCH (10:42)
[2019-04-11] MEDS: QUEtiapine FUMARATE 100 MG TABLET (FP) PO SCH (21:44)
[2019-04-11] MEDS: THIAMINE HCL 100 MG TABLET (FP) PO SCH (21:44)
[2019-04-11] MEDS: MELATONIN 5 MG TABLETS PO PRN (21:45)
[2019-04-12] MEDS: BENZOCAINE 20 % GEL TUBE MM SCH ×4 (04:42→21:47)
[2019-04-12] MEDS: busPIRone HCL 5 MG TABLET PO SCH ×3 (06:41→21:49)
[2019-04-12] MEDS: CYCLOBENZAPRINE HCL 10 MG TABLET (FP) PO PRN ×3 (06:41→21:48)
[2019-04-12] MEDS: METHADONE HCL 40 MG DISPERSABLE TABLET PO SCH (06:42)
[2019-04-12] MEDS: PRENATAL VITAMINS W/ FOLIC ACID TABLET (FP) PO SCH (10:40)
[2019-04-12] MEDS: NICOTINE 14 MG/24 HOURS TOPICAL PATCH TD SCH (10:40)
[2019-04-12] MEDS: LOPERAMIDE HCL 2 MG CAPSULE PO PRN ×2 (11:45→21:50)
[2019-04-12] MEDS: METHYL SALICYLATE/MENTHOL OINT 30 GM TUBE TP SCH ×2 (14:37→21:47)
[2019-04-12] MEDS: THIAMINE HCL 100 MG TABLET (FP) PO SCH (21:48)
[2019-04-12] MEDS: QUEtiapine FUMARATE 100 MG TABLET (FP) PO SCH (21:49)
[2019-04-12] MEDS: MELATONIN 5 MG TABLETS PO PRN (21:49)
[2019-04-13] MEDS: busPIRone HCL 5 MG TABLET PO SCH ×3 (06:28→21:44)
[2019-04-13] MEDS: METHADONE HCL 40 MG DISPERSABLE TABLET PO SCH (06:28)
[2019-04-13] MEDS: BENZOCAINE 20 % GEL TUBE MM SCH ×4 (06:29→21:44)
[2019-04-13] MEDS: CYCLOBENZAPRINE HCL 10 MG TABLET (FP) PO PRN ×3 (06:33→21:47)
[2019-04-13] MEDS: LOPERAMIDE HCL 2 MG CAPSULE PO PRN (08:22)
[2019-04-13] MEDS: METHYL SALICYLATE/MENTHOL OINT 30 GM TUBE TP SCH ×2 (10:45→21:44)
[2019-04-13] MEDS: PRENATAL VITAMINS W/ FOLIC ACID TABLET (FP) PO SCH (10:45)
[2019-04-13] MEDS: NICOTINE 14 MG/24 HOURS TOPICAL PATCH TD SCH (10:45)
[2019-04-13] MEDS ORDERED: DIPHENOXYLATE 2.5/ATROPINE.025 1 COMBO TABLET PO ONE (12:24)
--- NOTE | 2019-04-13 12:29 | PN ---
S Progress Note Note: Pt c/o watery stool since Friday. Reports was given imodium without relieve. Pt is s/p detox and agitated. Vital Signs - 24 hr 04/13/19 04/13/19 04/13/19 00:30 03:30 07:02 Temperature 97.6 F Pulse Rate 82 Respiratory 18 18 18 Rate Blood Pressure 111/77 A/P diarrhea D/c Imodium Lomotil 1 tab now then Q8H prn x 3 days
[2019-04-13] MEDS: QUEtiapine FUMARATE 100 MG TABLET (FP) PO SCH (21:45)
[2019-04-13] MEDS: THIAMINE HCL 100 MG TABLET (FP) PO SCH (21:45)
[2019-04-13] MEDS: DIPHENOXYLATE 2.5/ATROPINE.025 1 COMBO TABLET PO PRN (21:47)
[2019-04-14] MEDS: busPIRone HCL 5 MG TABLET PO SCH ×3 (06:21→21:34)
[2019-04-14] MEDS: METHADONE HCL 40 MG DISPERSABLE TABLET PO SCH (06:21)
[2019-04-14] MEDS: CYCLOBENZAPRINE HCL 10 MG TABLET (FP) PO PRN ×2 (06:21→14:29)
[2019-04-14] MEDS: BENZOCAINE 20 % GEL TUBE MM SCH ×4 (06:22→21:35)
[2019-04-14] MEDS: DIPHENOXYLATE 2.5/ATROPINE.025 1 COMBO TABLET PO PRN ×2 (06:24→21:37)
[2019-04-14] MEDS: PRENATAL VITAMINS W/ FOLIC ACID TABLET (FP) PO SCH (10:26)
[2019-04-14] MEDS: NICOTINE 14 MG/24 HOURS TOPICAL PATCH TD SCH (10:27)
[2019-04-14] MEDS: METHYL SALICYLATE/MENTHOL OINT 30 GM TUBE TP SCH ×2 (10:27→21:36)
[2019-04-14] MEDS: QUEtiapine FUMARATE 100 MG TABLET (FP) PO SCH (21:34)
[2019-04-14] MEDS: MELATONIN 5 MG TABLETS PO PRN (21:34)
[2019-04-14] MEDS: THIAMINE HCL 100 MG TABLET (FP) PO SCH (21:34)
[2019-04-15] MEDS: METHADONE HCL 40 MG DISPERSABLE TABLET PO SCH (06:29)
[2019-04-15] MEDS: CYCLOBENZAPRINE HCL 10 MG TABLET (FP) PO PRN ×3 (06:30→21:34)
[2019-04-15] MEDS: busPIRone HCL 5 MG TABLET PO SCH ×3 (06:30→21:32)
[2019-04-15] MEDS: BENZOCAINE 20 % GEL TUBE MM SCH ×4 (06:31→21:33)
[2019-04-15] MEDS: DIPHENOXYLATE 2.5/ATROPINE.025 1 COMBO TABLET PO PRN (08:27)
[2019-04-15] MEDS: PRENATAL VITAMINS W/ FOLIC ACID TABLET (FP) PO SCH (10:18)
[2019-04-15] MEDS: NICOTINE 14 MG/24 HOURS TOPICAL PATCH TD SCH (10:19)
[2019-04-15] MEDS: METHYL SALICYLATE/MENTHOL OINT 30 GM TUBE TP SCH ×2 (10:19→21:33)
[2019-04-15] MEDS: QUEtiapine FUMARATE 100 MG TABLET (FP) PO SCH (21:32)
[2019-04-15] MEDS: THIAMINE HCL 100 MG TABLET (FP) PO SCH (21:32)
[2019-04-15] MEDS: MELATONIN 5 MG TABLETS PO PRN (21:34)
[2019-04-16] MEDS: METHADONE HCL 40 MG DISPERSABLE TABLET PO SCH (06:17)
[2019-04-16] MEDS: busPIRone HCL 5 MG TABLET PO SCH ×3 (06:18→21:30)
[2019-04-16] MEDS: CYCLOBENZAPRINE HCL 10 MG TABLET (FP) PO PRN ×3 (06:19→21:30)
[2019-04-16] MEDS: BENZOCAINE 20 % GEL TUBE MM SCH ×4 (06:20→21:31)
[2019-04-16] MEDS: PRENATAL VITAMINS W/ FOLIC ACID TABLET (FP) PO SCH (10:36)
[2019-04-16] MEDS: METHYL SALICYLATE/MENTHOL OINT 30 GM TUBE TP SCH ×2 (10:37→21:31)
[2019-04-16] MEDS: NICOTINE 14 MG/24 HOURS TOPICAL PATCH TD SCH (10:37)
[2019-04-16] MEDS ORDERED: LOPERAMIDE HCL 2 MG CAPSULE PO PRN (14:26)
[2019-04-16] MEDS: THIAMINE HCL 100 MG TABLET (FP) PO SCH (21:30)
[2019-04-16] MEDS: QUEtiapine FUMARATE 100 MG TABLET (FP) PO SCH (21:30)
[2019-04-16] MEDS: MELATONIN 5 MG TABLETS PO PRN (21:30)
[2019-04-17] MEDS: BENZOCAINE 20 % GEL TUBE MM SCH ×4 (04:50→21:35)
[2019-04-17] MEDS: METHADONE HCL 40 MG DISPERSABLE TABLET PO SCH (06:30)
[2019-04-17] MEDS: busPIRone HCL 5 MG TABLET PO SCH ×3 (06:31→21:36)
[2019-04-17] MEDS: CYCLOBENZAPRINE HCL 10 MG TABLET (FP) PO PRN ×3 (06:31→21:36)
[2019-04-17] MEDS: PRENATAL VITAMINS W/ FOLIC ACID TABLET (FP) PO SCH (11:44)
[2019-04-17] MEDS: NICOTINE 14 MG/24 HOURS TOPICAL PATCH TD SCH (11:44)
[2019-04-17] MEDS: METHYL SALICYLATE/MENTHOL OINT 30 GM TUBE TP SCH ×2 (11:45→21:35)
[2019-04-17] MEDS: MELATONIN 5 MG TABLETS PO PRN (21:37)
[2019-04-17] MEDS: QUEtiapine FUMARATE 100 MG TABLET (FP) PO SCH (21:37)
[2019-04-17] MEDS: THIAMINE HCL 100 MG TABLET (FP) PO SCH (21:37)
[2019-04-18] MEDS: BENZOCAINE 20 % GEL TUBE MM SCH ×4 (04:00→21:34)
[2019-04-18] MEDS: METHADONE HCL 40 MG DISPERSABLE TABLET PO SCH (06:30)
[2019-04-18] MEDS: busPIRone HCL 5 MG TABLET PO SCH ×3 (06:30→21:36)
[2019-04-18] MEDS: CYCLOBENZAPRINE HCL 10 MG TABLET (FP) PO PRN ×3 (06:34→21:35)
[2019-04-18] MEDS: PRENATAL VITAMINS W/ FOLIC ACID TABLET (FP) PO SCH (10:20)
[2019-04-18] MEDS: NICOTINE 14 MG/24 HOURS TOPICAL PATCH TD SCH (10:21)
[2019-04-18] MEDS: METHYL SALICYLATE/MENTHOL OINT 30 GM TUBE TP SCH ×2 (10:23→21:34)
[2019-04-18] MEDS: QUEtiapine FUMARATE 100 MG TABLET (FP) PO SCH (21:35)
[2019-04-18] MEDS: MELATONIN 5 MG TABLETS PO PRN (21:35)
[2019-04-18] MEDS: THIAMINE HCL 100 MG TABLET (FP) PO SCH (21:36)
[2019-04-19] MEDS: METHADONE HCL 40 MG DISPERSABLE TABLET PO SCH (06:37)
[2019-04-19] MEDS: CYCLOBENZAPRINE HCL 10 MG TABLET (FP) PO PRN (06:39)
[2019-04-19] MEDS: busPIRone HCL 5 MG TABLET PO SCH (06:39)
[2019-04-19] MEDS: BENZOCAINE 20 % GEL TUBE MM SCH ×2 (06:41→10:16)
[2019-04-19 07:12] VITALS: BP 103/77; PULSE 103; TEMP 98.1
--- NOTE | 2019-04-19 10:00 | DS ---
[facility] Rehab Discharge Summary - [facility] Rehab Discharge Summary Admission Date: 04/06/19 Discharge Date: 04/19/19 - History Present History: Alcohol dependence, Cocaine dependence, MMTP, Opioid dependence , Sedative dependence Additional Comments: Pt is a 43 y/o male with a hx of MARGUERITE admitted to rehab and discharged today. Pt was referred to [facility] to continue OTP. Pt reports he has a primary care doctor Roger Lux [facility] [place], [place]. Pertinent Past History: Nystagus Hx Cardiac MurMur Mood disorder - Discharge Physical Exam Vital Signs: Vital Signs Temperature 98.1 F 04/19/19 07:11 Pulse Rate 103 H 04/19/19 07:11 Respiratory Rate 04/19/19 07:11 Blood Pressure 103/77 04/19/19 07:11 O2 Sat by Pulse Oximetry (%) Alert o x 3 nad oob ambulating with steady gait cardia:s1 s2,rrr lungs:cta.abdiel. abdomen:soft,+bs,nt,nd extremities/skin:no edema,Full ROM,skin intact.Right Heel and right ring finger wounds mostly resolved. Pertinent Admission Physical Exam Findings: Unremarkable/Uncharged sttus from detox admission. - Treatment Discharge Condition: Discharge condition good Hospital Course: Rehabilitated safely and responded well CD aftercare accepted - Medication Discharge Medications: Ambulatory Orders Buspirone HCl [Buspar -] 5 mg PO TID #90 tablet 04/19/19 Quetiapine Fumarate [Seroquel -] 100 mg PO DAILY #30 tablet 04/19/19 - Medication-Assisted Treatment (MAT) Medication-Assisted Treatment (MAT): No - Discharge Instructions Diet, activity, other medical instructions: Diet:Regular Activity:oob ad daryl Other medical instructions:Follow up with CD aftercare at [facility] aftercare as recommended. Follow up with your primary care doctor Dr. Roger Wells in 1-2 weeks after discharge from rehab. - Diagnosis (1) Alcohol dependence Status: Chronic Qualifiers: Substance use status: uncomplicated Qualified Code(s): F10.20 - Alcohol dependence, uncomplicated (2) Cocaine dependence Status: Chronic Qualifiers: Substance use status: uncomplicated Qualified Code(s): F14.20 - Cocaine dependence, uncomplicated (3) Nicotine dependence Status: Chronic Qualifiers: Nicotine product type: cigarettes Substance use status: uncomplicated Qualified Code(s): F17.210 - Nicotine dependence, cigarettes, uncomplicated (4) Methadone maintenance therapy patient Status: Chronic (5) Sedative hypnotic or anxiolytic dependence Status: Chronic (6) Heel lesion Status: Acute (7) Paronychia of finger of right hand Status: Acute - Follow-up Referral Minutes to complete discharge: 20 - AMA Did Patient Leave Against Medical Advice: No
[2019-04-19] MEDS: PRENATAL VITAMINS W/ FOLIC ACID TABLET (FP) PO SCH (10:14)
[2019-04-19] MEDS: NICOTINE 14 MG/24 HOURS TOPICAL PATCH TD SCH (10:16)
[2019-04-19] MEDS: METHYL SALICYLATE/MENTHOL OINT 30 GM TUBE TP SCH (10:16)
--- NOTE | 2019-04-19 10:53 | PN ---
[facility] Progress Note Note: Patient is discharged today. Scripts fo 30 days supply of medications(Seroquel 100 mg/hs, Buspar 5 mg/tid) are electronically transmitted to [facility] at [address] [place] [id number]
== END 2019-04-19 10:25 | disposition home or self-care (01) | DRG 772 ==
LOC: YASAS 12:41 → Y5N 12:42
PROVIDERS: ADMIT Neuromusculoskeletal Medicine & OMM; ATTEND Neuromusculoskeletal Medicine & OMM
PROC: HZ42ZZZ Group Counseling for Substance Abuse Treatment, Cognitive-Behavioral (ICD-10-PCS; principal; 2019-04-06)
DX: F10.20 Alcohol dependence, uncomplicated (principal); F11.20 Opioid dependence, uncomplicated; F13.20 Sedative, hypnotic or anxiolytic dependence, uncomplicated; F14.20 Cocaine dependence, uncomplicated; F17.210 Nicotine dependence, cigarettes, uncomplicated; F19.282 Other psychoactive substance dependence with psychoactive substance-induced sleep disorder; F19.24 Other psychoactive substance dependence with psychoactive substance-induced mood disorder; F31.9 Bipolar disorder, unspecified; F39 Unspecified mood [affective] disorder; H55.00 Unspecified nystagmus; L98.8 Other specified disorders of the skin and subcutaneous tissue; L03.011 Cellulitis of right finger; R01.1 Cardiac murmur, unspecified; Z91.013 Allergy to seafood; Z59.0 Homelessness

== ENCOUNTER 2019-05-06 14:53 | Inpatient (IN) | payer OTHER ==
[2019-05-06 17:15] VITALS: BMI 22.9
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
[2019-05-06] MEDS ORDERED: MAGNESIUM CITRATE 300 ML BOTTLE PO PRN (19:26)
[2019-05-06] MEDS ORDERED: MAGNESIUM HYDROX 2400MG/30ML ORAL SUSPENSION 30 ML CUP PO PRN (19:26)
[2019-05-06] MEDS ORDERED: cloNIDine HCL 0.1 MG TABLET PO PRN (19:26)
[2019-05-06] MEDS ORDERED: MENTHOL/PHENOL 1 EACH UD MM PRN (19:26)
[2019-05-06] MEDS ORDERED: MELATONIN 5 MG TABLETS PO PRN (19:26)
[2019-05-06] MEDS ORDERED: MAG HYDROX/AL HYDROX/SIMETH 30 ML UNIT-DOSE CUP PO PRN (19:26)
[2019-05-06] MEDS ORDERED: BISMUTH SUBSALICYLATE 524 MG/30 ML UD PO PRN (19:26)
[2019-05-06] MEDS ORDERED: chlordiazePOXIDE HCL 25 MG CAPSULE PO PRN (19:26)
[2019-05-06] MEDS ORDERED: ACETAMINOPHEN 325 MG TABLET (FP) PO PRN ×2 (19:26)
[2019-05-06] MEDS ORDERED: hydrOXYzine PAMOATE 25 MG CAPSULE (FP) PO PRN (19:26)
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
[2019-05-06] MEDS ORDERED: METHADONE HCL 10 MG TABLET (FOR DETOX USE ONLY) PO ONE (20:05)
[2019-05-06] MEDS: THIAMINE HCL 100 MG TABLET (FP) PO SCH (22:14)
[2019-05-06] MEDS: chlordiazePOXIDE HCL 25 MG CAPSULE PO SCH (22:14)
[2019-05-07] MEDS: chlordiazePOXIDE HCL 25 MG CAPSULE PO SCH ×4 (05:15→22:02)
[2019-05-07] MEDS ORDERED: BENZOCAINE 20 % GEL TUBE MM PRN (06:28)
--- NOTE | 2019-05-07 06:31 | PN ---
MATTHEW Progress Note Note: Patient complained of tooth ache Vital Signs Temperature 97.5 F L 05/07/19 06:00 Pulse Rate 62 05/07/19 06:00 Respiratory Rate 18 05/07/19 06:00 Blood Pressure 101/70 05/07/19 06:00 O2 Sat by Pulse Oximetry (%) Action: Ibuprofen 400mg tablet oral 1 tablet oral Q6H prn Benzocaine oral gel 1 appl MMQ6H
[2019-05-07] MEDS: IBUPROFEN 400 MG TABLET (FP) PO PRN ×2 (06:34→19:39)
[2019-05-07] MEDS ORDERED: METHADONE HCL 10 MG TABLET (FOR DETOX USE ONLY) ONE ×2 (08:40→13:10)
[2019-05-07] MEDS ORDERED: METHADONE HCL 5 MG TABLET (FOR DETOX USE ONLY) ONE ×2 (08:40→13:09)
[2019-05-07 09:42] LABS: HEMOGLOBIN 11.7 GM/dL (11.7-16.9); MCH 33.9 pg (25.7-33.7); MCHC 34.5 g/dl (32.0-35.9); MEAN CELL VOLUME 98.1 fl (80-96); PLATELET COUNT 223 K/MM3 (134-434); RBC 3.47 M/mm3 (4.00-5.60); RDW 13.1 % (11.9-15.9); WHITE BLOOD COUNT 3.5 K/mm3 (4.0-10.0)
[2019-05-07] MEDS ORDERED: METHADONE (DETOX) 20 MG, METHADONE (DETOX) 5 MG PO ONE (10:00)
[2019-05-07 10:25] LABS: ALBUMIN 3.5 g/dl (3.4-5.0); BILIRUBIN,TOTAL 0.6 mg/dL (0.2-1); BLOOD UREA NITROGEN 14.1 mg/dL (7-18); CALCIUM 8.5 mg/dL (8.5-10.1); CREATININE 0.9 mg/dL (0.55-1.3); POTASSIUM 4.1 mmol/L (3.5-5.1); TOT PROT 6.5 g/dl (6.4-8.2)
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
[2019-05-07] MEDS: NICOTINE 7 MG/24 HOURS TOPICAL PATCH TD SCH (13:11)
[2019-05-07] MEDS: PRENATAL VITAMINS W/ FOLIC ACID TABLET (FP) PO SCH (13:11)
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
[2019-05-07] MEDS: busPIRone HCL 5 MG TABLET PO SCH ×2 (15:47→22:02)
[2019-05-07] MEDS ORDERED: LIDOCAINE VISCOUS 2% ORAL/TOP 20 ML UNIT-DOSE CUP MM PRN (18:51)
[2019-05-07] MEDS: QUEtiapine FUMARATE 100 MG TABLET (FP) PO SCH (22:02)
[2019-05-07] MEDS: THIAMINE HCL 100 MG TABLET (FP) PO SCH (22:02)
[2019-05-08] MEDS: chlordiazePOXIDE HCL 25 MG CAPSULE PO SCH ×4 (05:39→22:33)
[2019-05-08] MEDS: busPIRone HCL 5 MG TABLET PO SCH ×3 (05:39→22:31)
[2019-05-08] MEDS ORDERED: METHADONE HCL 10 MG TABLET (FOR DETOX USE ONLY) PO ONE (10:00)
[2019-05-08] MEDS: PRENATAL VITAMINS W/ FOLIC ACID TABLET (FP) PO SCH (10:49)
[2019-05-08] MEDS: NICOTINE 7 MG/24 HOURS TOPICAL PATCH TD SCH (10:50)
[2019-05-08] MEDS: METHOCARBAMOL 500 MG TABLET PO PRN ×3 (10:53→23:37)
[2019-05-08] MEDS ORDERED: IBUPROFEN 400 MG TABLET (FP) PO PRN (11:11)
--- NOTE | 2019-05-08 11:13 | PN ---
[facility] CIWA - CIWA Score Nausea/Vomitin-No Nausea/No Vomiting Muscle Tremors: 2 Anxiety: 2 Agitation: 2 Paroxysmal Sweats: 2 Orientation: 0-Oriented Tacttile Disturbances: 0-None Auditory Disturbances: 0-None Visual Disturbances: 0-None Headache: 0-None Present CIWA-Ar Total Score: 8 BHS COWS - Scale Resting Pulse: 1= [place] 81-100 Sweatin= Chills/Flushing Restless Observation: 1= Difficult to Sit Still Pupil Size: 0= Normal to Room Light Bone or Joint Aches: 1= Mild Discomfort Runny Nose/ Eye Tearin= None GI Upset > 30mins: 0= None Tremor Observation of Outstretched Hands: 1= Tremor [place], Not Seen Yawning Observation: 1= 1-2x During Session Anxiety or Irritability: 2=Irritable/Anxious Goose Flesh Skin: 0=Smooth Skin COWS Score: 8 S Progress Note (SOAP) Subjective: agitation sweats low back pain irritable chills Objective: 05/08/19 11:12 Vital Signs Temperature 97.2 F L 05/08/19 09:22 Pulse Rate 82 05/08/19 09:22 Respiratory Rate 18 05/08/19 09:22 Blood Pressure 102/60 05/08/19 09:22 O2 Sat by Pulse Oximetry (%) Laboratory Tests 05/07/19 05/07/19 05/07/19 07:40 07:40 07:40 WBC 3.5 L RBC 3.47 L Hgb 11.7 Hct 34.0 L MCV 98.1 H MCH 33.9 H MCHC 34.5 RDW 13.1 Plt Count 223 MPV 9.0 Sodium 139 Potassium 4.1 Chloride 105 Carbon Dioxide 27 Anion Gap 7 L BUN 14.1 Creatinine 0.9 Est GFR (CKD-EPI)AfAm 119.13 Est GFR (CKD-EPI)NonAf 102.79 Random Glucose 66 L Calcium 8.5 Total Bilirubin 0.6 AST 31 ALT 36 Alkaline Phosphatase 82 Total Protein 6.5 Albumin 3.5 RPR Titer Nonreactive HIV 1&2 Ag/Ab, 4th Gen 05/07/19 07:40 WBC RBC Hgb Hct MCV MCH MCHC RDW Plt Count MPV Sodium Potassium Chloride Carbon Dioxide Anion Gap BUN Creatinine Est GFR (CKD-EPI)AfAm Est GFR (CKD-EPI)NonAf Random Glucose Calcium Total Bilirubin AST ALT Alkaline Phosphatase Total Protein Albumin RPR Titer HIV 1&2 Ag/Ab, 4th Gen Non reactive labs noted aaox3 ambulating no acute distress Assessment: 05/08/19 11:12 withdrawals Plan: continue detox increase fluids bacitracin oint ordered motrin 800mg tid prn lidocaine patch muscle relaxant prn
[2019-05-08] MEDS: BACITRACIN 15 GM TUBE TOPICAL OINTMENT TP SCH (11:30)
[2019-05-08] MEDS: LIDOCAINE 5% TOPICAL PATCH TP SCH (14:42)
[2019-05-08] MEDS ORDERED: LIDOCAINE PATCH REMOVAL MC SCH (22:00)
[2019-05-08] MEDS: THIAMINE HCL 100 MG TABLET (FP) PO SCH (22:31)
[2019-05-08] MEDS: QUEtiapine FUMARATE 100 MG TABLET (FP) PO SCH (22:31)
[2019-05-09] MEDS ORDERED: chlordiazePOXIDE HCL 10 MG CAPSULE PO PRN
[2019-05-09] MEDS: busPIRone HCL 5 MG TABLET PO SCH (05:54)
[2019-05-09] MEDS: chlordiazePOXIDE HCL 10 MG CAPSULE PO SCH ×2 (05:54→10:36)
[2019-05-09] MEDS: METHOCARBAMOL 500 MG TABLET PO PRN (05:55)
[2019-05-09 09:33] VITALS: BP 120/67; PULSE 83; TEMP 97.9
[2019-05-09] MEDS ORDERED: METHADONE (DETOX) 10 MG, METHADONE (DETOX) 5 MG PO ONE (10:00)
[2019-05-09] MEDS ORDERED: METHADONE HCL 5 MG TABLET (FOR DETOX USE ONLY) ONE (10:12)
[2019-05-09] MEDS ORDERED: METHADONE HCL 10 MG TABLET (FOR DETOX USE ONLY) ONE (10:13)
[2019-05-09] MEDS: BACITRACIN 15 GM TUBE TOPICAL OINTMENT TP SCH (10:35)
[2019-05-09] MEDS: PRENATAL VITAMINS W/ FOLIC ACID TABLET (FP) PO SCH (10:35)
[2019-05-09] MEDS: NICOTINE 7 MG/24 HOURS TOPICAL PATCH TD SCH (10:36)
[2019-05-09] MEDS: LIDOCAINE 5% TOPICAL PATCH TP SCH (11:05)
--- NOTE | 2019-05-09 13:50 | DS ---
[facility] Detox Discharge Summary Admission Date: 05/06/19 Discharge Date: 05/09/19 - History Present History: Alcohol Dependence, Cocaine Dependence, Opioid Dependence, Sedative Dependence Additional Comments: Patient approached nursing station and told designer writer that he wants to leave [facility] because of personal reasons and refused to elaborate. Patient insisted on leaving despite encouragement from designer writer and staff to complete detox. Patient instructed to call [phone] if sick or withdrawal sxs and to see his PCP within 3 days in which he verbalized understanding. Pertinent Past History: Nicotine dependence Opioid dependence, now stated he's in [facility] ?? Sedative dependence Cocaine dependence Alcohol dependence Cannabis use disorder - Physical Exam Results Vital Signs: Vital Signs Temperature 97.9 F 05/09/19 09:32 Pulse Rate 83 05/09/19 09:32 Respiratory Rate 20 05/09/19 09:32 Blood Pressure 120/67 05/09/19 09:32 O2 Sat by Pulse Oximetry (%) Pertinent Admission Physical Exam Findings: Withdrawal sxs Laboratory Tests 05/07/19 05/07/19 05/07/19 07:40 07:40 07:40 WBC 3.5 L RBC 3.47 L Hgb 11.7 Hct 34.0 L MCV 98.1 H MCH 33.9 H MCHC 34.5 RDW 13.1 Plt Count 223 MPV 9.0 Sodium 139 Potassium 4.1 Chloride 105 Carbon Dioxide 27 Anion Gap 7 L BUN 14.1 Creatinine 0.9 Est GFR (CKD-EPI)AfAm 119.13 Est GFR (CKD-EPI)NonAf 102.79 Random Glucose 66 L Calcium 8.5 Total Bilirubin 0.6 AST 31 ALT 36 Alkaline Phosphatase 82 Total Protein 6.5 Albumin 3.5 RPR Titer Nonreactive HIV 1&2 Ag/Ab, 4th Gen 05/07/19 07:40 WBC RBC Hgb Hct MCV MCH MCHC RDW Plt Count MPV Sodium Potassium Chloride Carbon Dioxide Anion Gap BUN Creatinine Est GFR (CKD-EPI)AfAm Est GFR (CKD-EPI)NonAf Random Glucose Calcium Total Bilirubin AST ALT Alkaline Phosphatase Total Protein Albumin RPR Titer HIV 1&2 Ag/Ab, 4th Gen Non reactive Labs reviewed - Medication Discharge Medications: Ambulatory Orders Buspirone HCl [Buspar -] 5 mg PO TID #90 tablet 04/19/19 Quetiapine Fumarate [Seroquel -] 100 mg PO DAILY #30 tablet 04/19/19 - Diagnosis (1) Cannabis use disorder, mild, abuse Status: Chronic (2) Alcohol dependence with uncomplicated withdrawal Status: Chronic (3) Cocaine dependence, uncomplicated Status: Chronic (4) Opioid dependence with withdrawal Status: Chronic (5) Sedative hypnotic or anxiolytic dependence Status: Chronic (6) Nicotine dependence Status: Chronic - AMA Did Patient Leave Against Medical Advice: Yes (Instructed to call 911 [facility] if sick or withdrawal sxs)
[2019-05-10] MEDS ORDERED: chlordiazePOXIDE HCL 10 MG CAPSULE PO SCH (05:00)
[2019-05-10] MEDS ORDERED: METHADONE HCL 10 MG TABLET (FOR DETOX USE ONLY) PO ONE (10:00)
[2019-05-11] MEDS ORDERED: chlordiazePOXIDE HCL 10 MG CAPSULE PO ONE (05:00)
[2019-05-11] MEDS ORDERED: METHADONE HCL 5 MG TABLET (FOR DETOX USE ONLY) PO ONE (06:00)
== END 2019-05-09 12:25 | disposition left against medical advice (07) | DRG 770 ==
LOC: YASAS 14:53 → Y6N 20:00
PROVIDERS: ADMIT Allergy & Immunology; ATTEND Allergy & Immunology
PROC: HZ2ZZZZ Detoxification Services for Substance Abuse Treatment (ICD-10-PCS; principal; 2019-05-06)
DX: F11.23 Opioid dependence with withdrawal (principal); F10.230 Alcohol dependence with withdrawal, uncomplicated; F10.280 Alcohol dependence with alcohol-induced anxiety disorder; F10.282 Alcohol dependence with alcohol-induced sleep disorder; F13.230 Sedative, hypnotic or anxiolytic dependence with withdrawal, uncomplicated; F14.20 Cocaine dependence, uncomplicated; F12.10 Cannabis abuse, uncomplicated; F17.210 Nicotine dependence, cigarettes, uncomplicated; F39 Unspecified mood [affective] disorder; F31.9 Bipolar disorder, unspecified; F19.24 Other psychoactive substance dependence with psychoactive substance-induced mood disorder; F41.9 Anxiety disorder, unspecified; F32.9 Major depressive disorder, single episode, unspecified; R01.1 Cardiac murmur, unspecified; K08.89 Other specified disorders of teeth and supporting structures; S05.92XD Unspecified injury of left eye and orbit, subsequent encounter; Y04.0XXD Assault by unarmed brawl or fight, subsequent encounter; Z86.69 Personal history of other diseases of the nervous system and sense organs; Z91.013 Allergy to seafood; Z59.0 Homelessness
CPT/HCPCS: 36415; 80053; 85027; 86593; 87389

== ENCOUNTER 2021-03-22 01:20 | Inpatient (IN) | payer OTHER ==
[2021-03-22 01:28] VITALS: BMI 22.6
[2021-03-22] MEDS ORDERED: MENTHOL/PHENOL 1 EACH UD MM PRN (02:19)
[2021-03-22] MEDS ORDERED: ACETAMINOPHEN 325 MG TABLET (FP) PO PRN ×2 (02:19)
[2021-03-22] MEDS ORDERED: MAG HYDROX/AL HYDROX/SIMETH 30 ML UNIT-DOSE CUP PO PRN (02:19)
[2021-03-22] MEDS ORDERED: MAGNESIUM HYDROX 2400MG/30ML ORAL SUSPENSION 30 ML CUP PO PRN (02:19)
[2021-03-22] MEDS ORDERED: IBUPROFEN 400 MG TABLET (FP) PO PRN (02:19)
[2021-03-22] MEDS ORDERED: MAGNESIUM CITRATE 300 ML BOTTLE PO PRN (02:19)
[2021-03-22] MEDS ORDERED: ONDANSETRON *ODT* 4 MG TABLET SL PRN (02:19)
[2021-03-22] MEDS ORDERED: BISMUTH SUBSALICYLATE 524 MG/30 ML PO PRN (02:19)
[2021-03-22] MEDS ORDERED: LORazepam 1 MG TABLET PO PRN (02:22)
[2021-03-22] MEDS ORDERED: IBUPROFEN 400 MG TABLET (FP) PO ONE (02:41)
[2021-03-22] MEDS ORDERED: LORazepam 2 MG TABLET ONE (06:48)
[2021-03-22] MEDS: LORazepam 2 MG TABLET PO SCH ×4 (07:00→22:20)
[2021-03-22 08:24] LABS: HEMATOCRIT 34.4 % (35.4-49); HEMOGLOBIN 11.7 GM/dL (11.7-16.9); MCH 32.9 pg (25.7-33.7); MCHC 34.1 g/dl (32.0-35.9); MEAN CELL VOLUME 96.6 fl (80-96); MEAN PLT VOLUME 8.7 fl (7.5-11.1); PLATELET COUNT 227 10^3/uL (134-434); RBC 3.56 M/mm3 (4.00-5.60); RDW 13.2 % (11.9-15.9); WHITE BLOOD COUNT 4.7 K/mm3 (4.0-10.0)
[2021-03-22 08:56] LABS: ALBUMIN 3.7 g/dl (3.4-5.0); BLOOD UREA NITROGEN 22.5 mg/dL (7-18)
[2021-03-22 08:58] LABS: BILIRUBIN,TOTAL 0.4 mg/dL (0.2-1); TOT PROT 6.7 g/dl (6.4-8.2)
[2021-03-22 08:59] LABS: CREATININE 0.8 mg/dL (0.55-1.3)
[2021-03-22] MEDS ORDERED: methaDONE HCL 10 MG TABLET PO SCH (09:45)
[2021-03-22 10:23] LABS: HIV INTERPRETATION NEGATIVE (NEGATIVE)
[2021-03-22] MEDS ORDERED: methaDONE 40 MG, methaDONE 10 MG PO ONE (10:45)
[2021-03-22] MEDS ORDERED: methaDONE HCL 10 MG TABLET ONE (11:00)
[2021-03-22] MEDS ORDERED: methaDONE HCL 40 MG DISPERSABLE TABLET ONE (11:01)
[2021-03-22] MEDS: PRENATAL VITAMINS W/ FOLIC ACID TABLET (FP) PO SCH (11:09)
[2021-03-22] MEDS: NICOTINE 14 MG/24 HOURS TOPICAL PATCH TD SCH (11:10)
[2021-03-22] MEDS ORDERED: hydrOXYzine PAMOATE 25 MG CAPSULE (FP) PO PRN (12:20)
[2021-03-22] MEDS: lamoTRIgine 25 MG TABLET PO SCH (14:43)
[2021-03-22] MEDS ORDERED: MELATONIN 5 MG TABLETS PO SCH (22:00)
[2021-03-22] MEDS: METHOCARBAMOL 500 MG TABLET PO PRN (22:19)
[2021-03-22] MEDS: MIRTAZAPINE 15 MG TABLET (FP) PO SCH (22:20)
[2021-03-22] MEDS: GABAPENTIN 300 MG CAPSULE PO SCH (22:20)
[2021-03-22] MEDS: THIAMINE HCL 100 MG TABLET (FP) PO SCH (22:24)
[2021-03-22] MEDS: QUEtiapine FUMARATE 100 MG TABLET (FP) PO SCH (22:24)
[2021-03-23] MEDS ORDERED: methaDONE HCL 10 MG TABLET ONE (04:13)
[2021-03-23] MEDS ORDERED: methaDONE HCL 40 MG DISPERSABLE TABLET ONE (04:13)
[2021-03-23] MEDS: LORazepam 1 MG TABLET PO SCH ×4 (05:55→22:10)
[2021-03-23] MEDS: methaDONE 40 MG, methaDONE 10 MG PO SCH (05:55)
[2021-03-23] MEDS: PRENATAL VITAMINS W/ FOLIC ACID TABLET (FP) PO SCH (10:10)
[2021-03-23] MEDS: NICOTINE 14 MG/24 HOURS TOPICAL PATCH TD SCH (10:10)
[2021-03-23] MEDS: GABAPENTIN 300 MG CAPSULE PO SCH ×2 (10:10→22:09)
[2021-03-23] MEDS: METHOCARBAMOL 500 MG TABLET PO PRN ×2 (10:10→17:35)
[2021-03-23] MEDS: lamoTRIgine 25 MG TABLET PO SCH (10:10)
[2021-03-23] MEDS: MIRTAZAPINE 15 MG TABLET (FP) PO SCH (22:09)
[2021-03-23] MEDS: QUEtiapine FUMARATE 100 MG TABLET (FP) PO SCH (22:09)
[2021-03-23] MEDS: THIAMINE HCL 100 MG TABLET (FP) PO SCH (22:10)
[2021-03-24] MEDS ORDERED: LORazepam 0.5 MG TABLET PO PRN
[2021-03-24] MEDS: METHOCARBAMOL 500 MG TABLET PO PRN ×4 (00:08→18:10)
[2021-03-24] MEDS ORDERED: methaDONE HCL 10 MG TABLET ONE (04:17)
[2021-03-24] MEDS ORDERED: methaDONE HCL 40 MG DISPERSABLE TABLET ONE (04:18)
[2021-03-24] MEDS: methaDONE 40 MG, methaDONE 10 MG PO SCH (06:12)
[2021-03-24] MEDS: LORazepam 0.5 MG TABLET PO SCH ×4 (06:13→22:14)
[2021-03-24] MEDS: PRENATAL VITAMINS W/ FOLIC ACID TABLET (FP) PO SCH (10:19)
[2021-03-24] MEDS: lamoTRIgine 25 MG TABLET PO SCH (10:19)
[2021-03-24] MEDS: GABAPENTIN 300 MG CAPSULE PO SCH ×2 (10:19→22:13)
[2021-03-24] MEDS: NICOTINE 14 MG/24 HOURS TOPICAL PATCH TD SCH (10:20)
[2021-03-24] MEDS: NICOTINE 10 MG CARTRIDGE (INHALER) IH PRN (21:55)
[2021-03-24] MEDS: MIRTAZAPINE 15 MG TABLET (FP) PO SCH (22:14)
[2021-03-24] MEDS: THIAMINE HCL 100 MG TABLET (FP) PO SCH (22:14)
[2021-03-24] MEDS: QUEtiapine FUMARATE 100 MG TABLET (FP) PO SCH (22:14)
[2021-03-25] MEDS ORDERED: LORazepam 0.5 MG TABLET PO ONE (05:00)
[2021-03-25] MEDS ORDERED: methaDONE HCL 10 MG TABLET ONE (05:25)
[2021-03-25] MEDS ORDERED: methaDONE HCL 40 MG DISPERSABLE TABLET ONE (05:26)
[2021-03-25 06:15] VITALS: TEMP 97.7
[2021-03-25] MEDS: methaDONE 40 MG, methaDONE 10 MG PO SCH (06:21)
[2021-03-25] MEDS: METHOCARBAMOL 500 MG TABLET PO PRN ×2 (06:22→12:51)
[2021-03-25] MEDS: PRENATAL VITAMINS W/ FOLIC ACID TABLET (FP) PO SCH (10:25)
[2021-03-25] MEDS: lamoTRIgine 25 MG TABLET PO SCH (10:26)
[2021-03-25] MEDS: GABAPENTIN 300 MG CAPSULE PO SCH (10:26)
[2021-03-25] MEDS: NICOTINE 10 MG CARTRIDGE (INHALER) IH PRN (10:26)
[2021-03-25] MEDS: NICOTINE 14 MG/24 HOURS TOPICAL PATCH TD SCH (10:42)
[2021-03-25 11:41] VITALS: BP 122/82; PULSE 104
== END 2021-03-25 03:04 | disposition other institution (70) | DRG 773 ==
LOC: YASAS 01:20 → Y6N 09:58
PROVIDERS: ADMIT Allergy & Immunology; ATTEND Allergy & Immunology
PROC: HZ2ZZZZ Detoxification Services for Substance Abuse Treatment (ICD-10-PCS; principal; 2021-03-22)
DX: F10.230 Alcohol dependence with withdrawal, uncomplicated (principal); F11.20 Opioid dependence, uncomplicated; F14.20 Cocaine dependence, uncomplicated; F17.210 Nicotine dependence, cigarettes, uncomplicated; F39 Unspecified mood [affective] disorder; F19.280 Other psychoactive substance dependence with psychoactive substance-induced anxiety disorder; F19.282 Other psychoactive substance dependence with psychoactive substance-induced sleep disorder; B19.20 Unspecified viral hepatitis C without hepatic coma; G40.509 Epileptic seizures related to external causes, not intractable, without status epilepticus; H55.00 Unspecified nystagmus; M25.569 Pain in unspecified knee; R01.1 Cardiac murmur, unspecified; Z91.410 Personal history of adult physical and sexual abuse; Z56.0 Unemployment, unspecified; Z59.0 Homelessness
CPT/HCPCS: 36415; 80053; 85027; 86780; 87389; 93005; 93010; C9803; U0003; U0005

== ENCOUNTER 2021-03-25 15:30 | Inpatient (IN) | payer OTHER ==
[2021-03-25] MEDS ORDERED: guaiFENesin 200 MG/10 ML 10 ML UNIT-DOSE CUPS PO PRN (16:31)
[2021-03-25] MEDS ORDERED: IBUPROFEN 400 MG TABLET (FP) PO PRN (16:31)
[2021-03-25] MEDS ORDERED: MENTHOL/PHENOL 1 EACH UD MM PRN (16:31)
[2021-03-25] MEDS ORDERED: MAG HYDROX/AL HYDROX/SIMETH 30 ML UNIT-DOSE CUP PO PRN (16:31)
[2021-03-25] MEDS ORDERED: LOPERAMIDE HCL 2 MG CAPSULE PO PRN (16:31)
[2021-03-25] MEDS ORDERED: MAGNESIUM HYDROX 2400MG/30ML ORAL SUSPENSION 30 ML CUP PO PRN (16:31)
[2021-03-25] MEDS ORDERED: MAGNESIUM CITRATE 300 ML BOTTLE PO PRN (16:31)
[2021-03-25] MEDS ORDERED: ACETAMINOPHEN 325 MG TABLET (FP) PO PRN (16:31)
[2021-03-25] MEDS ORDERED: P-EPHED 60MG/TRIPROLIDI 2.5MG TABLET PO PRN (16:31)
[2021-03-25] MEDS: hydrOXYzine PAMOATE 25 MG CAPSULE (FP) PO SCH ×2 (18:35→21:19)
[2021-03-25] MEDS: METHOCARBAMOL 500 MG TABLET PO PRN ×2 (18:35→21:19)
[2021-03-25] MEDS: MELATONIN 5 MG TABLETS PO SCH (21:19)
[2021-03-25] MEDS: MIRTAZAPINE 15 MG TABLET (FP) PO SCH (21:19)
[2021-03-25] MEDS: THIAMINE HCL 100 MG TABLET (FP) PO SCH (21:19)
[2021-03-25] MEDS: QUEtiapine FUMARATE 100 MG TABLET (FP) PO SCH (21:19)
[2021-03-26] MEDS ORDERED: methaDONE HCL 10 MG TABLET PO SCH (06:00)
[2021-03-26] MEDS ORDERED: methaDONE HCL 40 MG DISPERSABLE TABLET ONE (06:04)
[2021-03-26] MEDS ORDERED: methaDONE HCL 10 MG TABLET ONE (06:04)
[2021-03-26] MEDS: methaDONE 40 MG, methaDONE 10 MG PO SCH (06:37)
[2021-03-26] MEDS: METHOCARBAMOL 500 MG TABLET PO PRN ×4 (06:38→21:46)
[2021-03-26] MEDS: hydrOXYzine PAMOATE 25 MG CAPSULE (FP) PO SCH (07:06)
[2021-03-26] MEDS: NICOTINE 10 MG CARTRIDGE (INHALER) IH PRN (07:46)
[2021-03-26] MEDS: NICOTINE 7 MG/24 HOURS TOPICAL PATCH TD SCH (10:32)
[2021-03-26] MEDS ORDERED: PT OWN MED DRAWER 7, Y5N ONE (10:34)
[2021-03-26] MEDS: GABAPENTIN 300 MG CAPSULE PO SCH ×2 (10:35→21:43)
[2021-03-26] MEDS: PRENATAL VITAMINS W/ FOLIC ACID TABLET (FP) PO SCH (10:37)
[2021-03-26] MEDS: hydrOXYzine PAMOATE 25 MG CAPSULE (FP) PO PRN ×2 (10:50→17:38)
[2021-03-26] MEDS: lamoTRIgine 25 MG TABLET PO SCH (11:07)
[2021-03-26] MEDS: THIAMINE HCL 100 MG TABLET (FP) PO SCH (21:43)
[2021-03-26] MEDS: MIRTAZAPINE 15 MG TABLET (FP) PO SCH (21:44)
[2021-03-26] MEDS: MELATONIN 5 MG TABLETS PO SCH (21:44)
[2021-03-26] MEDS: QUEtiapine FUMARATE 100 MG TABLET (FP) PO SCH (21:44)
[2021-03-27] MEDS ORDERED: methaDONE HCL 40 MG DISPERSABLE TABLET ONE (03:07)
[2021-03-27] MEDS ORDERED: methaDONE HCL 10 MG TABLET ONE (03:07)
[2021-03-27] MEDS: METHOCARBAMOL 500 MG TABLET PO PRN ×4 (06:48→21:19)
[2021-03-27] MEDS: methaDONE 40 MG, methaDONE 10 MG PO SCH (06:48)
[2021-03-27] MEDS: NICOTINE 10 MG CARTRIDGE (INHALER) IH PRN ×2 (09:02→21:20)
[2021-03-27] MEDS: PRENATAL VITAMINS W/ FOLIC ACID TABLET (FP) PO SCH (10:15)
[2021-03-27] MEDS: GABAPENTIN 300 MG CAPSULE PO SCH ×2 (10:15→21:19)
[2021-03-27] MEDS: lamoTRIgine 25 MG TABLET PO SCH (10:15)
[2021-03-27] MEDS: hydrOXYzine PAMOATE 25 MG CAPSULE (FP) PO PRN ×2 (10:16→21:19)
[2021-03-27] MEDS: NICOTINE 7 MG/24 HOURS TOPICAL PATCH TD SCH (10:54)
[2021-03-27] MEDS ORDERED: IBUPROFEN 600 MG TABLET (FP) PO PRN (11:14)
[2021-03-27] MEDS: LIDOCAINE 5% TOPICAL PATCH TP SCH (13:03)
[2021-03-27] MEDS: MELATONIN 5 MG TABLETS PO SCH (21:19)
[2021-03-27] MEDS: QUEtiapine FUMARATE 100 MG TABLET (FP) PO SCH (21:19)
[2021-03-27] MEDS: METHYL SALICYLATE/MENTHOL OINT 30 GM TUBE TP SCH (21:19)
[2021-03-27] MEDS: THIAMINE HCL 100 MG TABLET (FP) PO SCH (21:19)
[2021-03-27] MEDS: MIRTAZAPINE 15 MG TABLET (FP) PO SCH (21:19)
[2021-03-27] MEDS: LIDOCAINE PATCH REMOVAL MC SCH (21:20)
[2021-03-28] MEDS ORDERED: methaDONE HCL 10 MG TABLET ONE (05:04)
[2021-03-28] MEDS ORDERED: methaDONE HCL 40 MG DISPERSABLE TABLET ONE (05:05)
[2021-03-28] MEDS: METHOCARBAMOL 500 MG TABLET PO PRN ×3 (06:05→21:24)
[2021-03-28] MEDS: methaDONE 40 MG, methaDONE 10 MG PO SCH (06:06)
[2021-03-28] MEDS: NICOTINE 7 MG/24 HOURS TOPICAL PATCH TD SCH (10:09)
[2021-03-28] MEDS: GABAPENTIN 300 MG CAPSULE PO SCH ×2 (10:09→21:24)
[2021-03-28] MEDS: LIDOCAINE 5% TOPICAL PATCH TP SCH (10:09)
[2021-03-28] MEDS: PRENATAL VITAMINS W/ FOLIC ACID TABLET (FP) PO SCH (10:09)
[2021-03-28] MEDS: NICOTINE 10 MG CARTRIDGE (INHALER) IH PRN ×2 (10:11→21:25)
[2021-03-28] MEDS: hydrOXYzine PAMOATE 25 MG CAPSULE (FP) PO PRN ×3 (10:12→21:25)
[2021-03-28] MEDS: lamoTRIgine 25 MG TABLET PO SCH (10:39)
[2021-03-28] MEDS: MELATONIN 5 MG TABLETS PO SCH (21:23)
[2021-03-28] MEDS: THIAMINE HCL 100 MG TABLET (FP) PO SCH (21:23)
[2021-03-28] MEDS: QUEtiapine FUMARATE 100 MG TABLET (FP) PO SCH (21:24)
[2021-03-28] MEDS: MIRTAZAPINE 15 MG TABLET (FP) PO SCH (21:24)
[2021-03-28] MEDS: SUVOREXANT 10 MG TABLET PO PRN (21:24)
[2021-03-28] MEDS: LIDOCAINE PATCH REMOVAL MC SCH (21:25)
[2021-03-28] MEDS: METHYL SALICYLATE/MENTHOL OINT 30 GM TUBE TP SCH (21:25)
[2021-03-29] MEDS ORDERED: methaDONE HCL 40 MG DISPERSABLE TABLET ONE (03:04)
[2021-03-29] MEDS ORDERED: methaDONE HCL 10 MG TABLET ONE (03:04)
[2021-03-29] MEDS: METHOCARBAMOL 500 MG TABLET PO PRN ×2 (06:47→13:52)
[2021-03-29] MEDS: methaDONE 40 MG, methaDONE 10 MG PO SCH (06:47)
[2021-03-29] MEDS: NICOTINE 7 MG/24 HOURS TOPICAL PATCH TD SCH (10:28)
[2021-03-29] MEDS: GABAPENTIN 300 MG CAPSULE PO SCH ×2 (10:28→21:34)
[2021-03-29] MEDS: PRENATAL VITAMINS W/ FOLIC ACID TABLET (FP) PO SCH (10:28)
[2021-03-29] MEDS: hydrOXYzine PAMOATE 25 MG CAPSULE (FP) PO PRN ×2 (10:29→21:35)
[2021-03-29] MEDS: LIDOCAINE 5% TOPICAL PATCH TP SCH (10:29)
[2021-03-29] MEDS: lamoTRIgine 25 MG TABLET PO SCH (10:29)
[2021-03-29] MEDS: NICOTINE 10 MG CARTRIDGE (INHALER) IH PRN (10:30)
[2021-03-29] MEDS: THIAMINE HCL 100 MG TABLET (FP) PO SCH (21:34)
[2021-03-29] MEDS: LIDOCAINE PATCH REMOVAL MC SCH (21:34)
[2021-03-29] MEDS: QUEtiapine FUMARATE 100 MG TABLET (FP) PO SCH (21:34)
[2021-03-29] MEDS: METHYL SALICYLATE/MENTHOL OINT 30 GM TUBE TP SCH (21:34)
[2021-03-29] MEDS: MIRTAZAPINE 15 MG TABLET (FP) PO SCH (21:34)
[2021-03-29] MEDS: MELATONIN 5 MG TABLETS PO SCH (21:34)
[2021-03-29] MEDS: SUVOREXANT 10 MG TABLET PO PRN (21:38)
[2021-03-30] MEDS ORDERED: methaDONE HCL 10 MG TABLET ONE (05:05)
[2021-03-30] MEDS ORDERED: methaDONE HCL 40 MG DISPERSABLE TABLET ONE (05:05)
[2021-03-30] MEDS: METHOCARBAMOL 500 MG TABLET PO PRN ×3 (06:26→22:09)
[2021-03-30] MEDS: methaDONE 40 MG, methaDONE 10 MG PO SCH (06:26)
[2021-03-30] MEDS: PRENATAL VITAMINS W/ FOLIC ACID TABLET (FP) PO SCH (10:29)
[2021-03-30] MEDS: hydrOXYzine PAMOATE 25 MG CAPSULE (FP) PO PRN (10:29)
[2021-03-30] MEDS: GABAPENTIN 300 MG CAPSULE PO SCH ×2 (10:29→22:13)
[2021-03-30] MEDS: lamoTRIgine 25 MG TABLET PO SCH (10:29)
[2021-03-30] MEDS: NICOTINE 10 MG CARTRIDGE (INHALER) IH PRN ×2 (10:30→22:16)
[2021-03-30] MEDS: LIDOCAINE 5% TOPICAL PATCH TP SCH (10:30)
[2021-03-30] MEDS: NICOTINE 7 MG/24 HOURS TOPICAL PATCH TD SCH (10:30)
[2021-03-30] MEDS: MELATONIN 5 MG TABLETS PO SCH (22:06)
[2021-03-30] MEDS: LIDOCAINE PATCH REMOVAL MC SCH (22:07)
[2021-03-30] MEDS: METHYL SALICYLATE/MENTHOL OINT 30 GM TUBE TP SCH (22:08)
[2021-03-30] MEDS: THIAMINE HCL 100 MG TABLET (FP) PO SCH (22:10)
[2021-03-30] MEDS: MIRTAZAPINE 15 MG TABLET (FP) PO SCH (22:13)
[2021-03-30] MEDS: QUEtiapine FUMARATE 100 MG TABLET (FP) PO SCH (22:13)
[2021-03-30] MEDS: SUVOREXANT 10 MG TABLET PO PRN (22:15)
[2021-03-31] MEDS ORDERED: methaDONE HCL 10 MG TABLET ONE (03:55)
[2021-03-31] MEDS ORDERED: methaDONE HCL 40 MG DISPERSABLE TABLET ONE (03:56)
[2021-03-31] MEDS: methaDONE 40 MG, methaDONE 10 MG PO SCH (06:39)
[2021-03-31] MEDS: METHOCARBAMOL 500 MG TABLET PO PRN ×3 (06:40→21:45)
[2021-03-31] MEDS: GABAPENTIN 300 MG CAPSULE PO SCH ×2 (10:20→21:45)
[2021-03-31] MEDS: PRENATAL VITAMINS W/ FOLIC ACID TABLET (FP) PO SCH (10:20)
[2021-03-31] MEDS: lamoTRIgine 25 MG TABLET PO SCH (10:21)
[2021-03-31] MEDS: LIDOCAINE 5% TOPICAL PATCH TP SCH (10:21)
[2021-03-31] MEDS: hydrOXYzine PAMOATE 25 MG CAPSULE (FP) PO PRN ×2 (10:22→21:46)
[2021-03-31] MEDS: NICOTINE 10 MG CARTRIDGE (INHALER) IH PRN ×2 (10:22→21:47)
[2021-03-31] MEDS: NICOTINE 7 MG/24 HOURS TOPICAL PATCH TD SCH (10:22)
[2021-03-31] MEDS: MELATONIN 5 MG TABLETS PO SCH (21:43)
[2021-03-31] MEDS: SUVOREXANT 10 MG TABLET PO PRN (21:44)
[2021-03-31] MEDS: QUEtiapine FUMARATE 100 MG TABLET (FP) PO SCH (21:45)
[2021-03-31] MEDS: METHYL SALICYLATE/MENTHOL OINT 30 GM TUBE TP SCH (21:46)
[2021-03-31] MEDS: MIRTAZAPINE 15 MG TABLET (FP) PO SCH (21:46)
[2021-03-31] MEDS: LIDOCAINE PATCH REMOVAL MC SCH (21:46)
[2021-03-31] MEDS: THIAMINE HCL 100 MG TABLET (FP) PO SCH (21:46)
[2021-04-01] MEDS ORDERED: methaDONE HCL 40 MG DISPERSABLE TABLET ONE (03:48)
[2021-04-01] MEDS ORDERED: methaDONE HCL 10 MG TABLET ONE (03:48)
[2021-04-01] MEDS: METHOCARBAMOL 500 MG TABLET PO PRN ×3 (06:25→21:38)
[2021-04-01] MEDS: methaDONE 40 MG, methaDONE 10 MG PO SCH (06:25)
[2021-04-01] MEDS: lamoTRIgine 25 MG TABLET PO SCH (10:14)
[2021-04-01] MEDS: PRENATAL VITAMINS W/ FOLIC ACID TABLET (FP) PO SCH (10:14)
[2021-04-01] MEDS: GABAPENTIN 300 MG CAPSULE PO SCH ×2 (10:14→21:37)
[2021-04-01] MEDS: NICOTINE 7 MG/24 HOURS TOPICAL PATCH TD SCH (10:15)
[2021-04-01] MEDS: NICOTINE 10 MG CARTRIDGE (INHALER) IH PRN ×2 (10:15→21:41)
[2021-04-01] MEDS: LIDOCAINE 5% TOPICAL PATCH TP SCH (10:15)
[2021-04-01] MEDS: hydrOXYzine PAMOATE 25 MG CAPSULE (FP) PO PRN (10:16)
[2021-04-01] MEDS: SUVOREXANT 10 MG TABLET PO PRN (21:37)
[2021-04-01] MEDS: QUEtiapine FUMARATE 100 MG TABLET (FP) PO SCH (21:37)
[2021-04-01] MEDS: METHYL SALICYLATE/MENTHOL OINT 30 GM TUBE TP SCH (21:37)
[2021-04-01] MEDS: MIRTAZAPINE 15 MG TABLET (FP) PO SCH (21:37)
[2021-04-01] MEDS: MELATONIN 5 MG TABLETS PO SCH (21:38)
[2021-04-01] MEDS: LIDOCAINE PATCH REMOVAL MC SCH (21:38)
[2021-04-01] MEDS: THIAMINE HCL 100 MG TABLET (FP) PO SCH (21:40)
[2021-04-02] MEDS ORDERED: methaDONE HCL 10 MG TABLET ONE (06:25)
[2021-04-02] MEDS ORDERED: methaDONE HCL 40 MG DISPERSABLE TABLET ONE (06:25)
[2021-04-02] MEDS: METHOCARBAMOL 500 MG TABLET PO PRN ×3 (06:27→17:53)
[2021-04-02] MEDS: methaDONE 40 MG, methaDONE 10 MG PO SCH (06:27)
[2021-04-02] MEDS: GABAPENTIN 300 MG CAPSULE PO SCH ×2 (10:37→21:42)
[2021-04-02] MEDS: LIDOCAINE 5% TOPICAL PATCH TP SCH (10:38)
[2021-04-02] MEDS: NICOTINE 7 MG/24 HOURS TOPICAL PATCH TD SCH (10:38)
[2021-04-02] MEDS: lamoTRIgine 25 MG TABLET PO SCH (10:38)
[2021-04-02] MEDS: PRENATAL VITAMINS W/ FOLIC ACID TABLET (FP) PO SCH (10:38)
[2021-04-02] MEDS: hydrOXYzine PAMOATE 25 MG CAPSULE (FP) PO PRN ×2 (10:39→17:53)
[2021-04-02] MEDS: NICOTINE 10 MG CARTRIDGE (INHALER) IH PRN ×2 (10:40→21:44)
[2021-04-02] MEDS: SUVOREXANT 10 MG TABLET PO PRN (21:41)
[2021-04-02] MEDS: MIRTAZAPINE 15 MG TABLET (FP) PO SCH (21:41)
[2021-04-02] MEDS: METHYL SALICYLATE/MENTHOL OINT 30 GM TUBE TP SCH (21:42)
[2021-04-02] MEDS: THIAMINE HCL 100 MG TABLET (FP) PO SCH (21:42)
[2021-04-02] MEDS: QUEtiapine FUMARATE 100 MG TABLET (FP) PO SCH (21:42)
[2021-04-02] MEDS: MELATONIN 5 MG TABLETS PO SCH (21:43)
[2021-04-02] MEDS: LIDOCAINE PATCH REMOVAL MC SCH (21:44)
[2021-04-03] MEDS ORDERED: methaDONE HCL 10 MG TABLET ONE (02:43)
[2021-04-03] MEDS ORDERED: methaDONE HCL 40 MG DISPERSABLE TABLET ONE (02:43)
[2021-04-03] MEDS: METHOCARBAMOL 500 MG TABLET PO PRN ×3 (06:21→21:29)
[2021-04-03] MEDS: methaDONE 40 MG, methaDONE 10 MG PO SCH (06:21)
[2021-04-03] MEDS: PRENATAL VITAMINS W/ FOLIC ACID TABLET (FP) PO SCH (10:25)
[2021-04-03] MEDS: NICOTINE 7 MG/24 HOURS TOPICAL PATCH TD SCH (10:25)
[2021-04-03] MEDS: GABAPENTIN 300 MG CAPSULE PO SCH ×2 (10:25→21:28)
[2021-04-03] MEDS: LIDOCAINE 5% TOPICAL PATCH TP SCH (10:26)
[2021-04-03] MEDS: lamoTRIgine 25 MG TABLET PO SCH (10:26)
[2021-04-03] MEDS: hydrOXYzine PAMOATE 25 MG CAPSULE (FP) PO PRN (10:27)
[2021-04-03] MEDS: NICOTINE 10 MG CARTRIDGE (INHALER) IH PRN (10:31)
[2021-04-03] MEDS: METHYL SALICYLATE/MENTHOL OINT 30 GM TUBE TP SCH (21:27)
[2021-04-03] MEDS: MIRTAZAPINE 15 MG TABLET (FP) PO SCH (21:27)
[2021-04-03] MEDS: LIDOCAINE PATCH REMOVAL MC SCH (21:27)
[2021-04-03] MEDS: SUVOREXANT 10 MG TABLET PO PRN (21:27)
[2021-04-03] MEDS: QUEtiapine FUMARATE 100 MG TABLET (FP) PO SCH (21:28)
[2021-04-03] MEDS: THIAMINE HCL 100 MG TABLET (FP) PO SCH (21:28)
[2021-04-03] MEDS: MELATONIN 5 MG TABLETS PO SCH (21:28)
[2021-04-04] MEDS ORDERED: methaDONE HCL 10 MG TABLET ONE (03:51)
[2021-04-04] MEDS ORDERED: methaDONE HCL 40 MG DISPERSABLE TABLET ONE (03:51)
[2021-04-04] MEDS: METHOCARBAMOL 500 MG TABLET PO PRN ×4 (06:19→21:44)
[2021-04-04] MEDS: methaDONE 40 MG, methaDONE 10 MG PO SCH (06:19)
[2021-04-04] MEDS: PRENATAL VITAMINS W/ FOLIC ACID TABLET (FP) PO SCH (10:18)
[2021-04-04] MEDS: NICOTINE 7 MG/24 HOURS TOPICAL PATCH TD SCH (10:18)
[2021-04-04] MEDS: NICOTINE 10 MG CARTRIDGE (INHALER) IH PRN ×2 (10:19→21:45)
[2021-04-04] MEDS: GABAPENTIN 300 MG CAPSULE PO SCH ×2 (10:19→21:44)
[2021-04-04] MEDS: LIDOCAINE 5% TOPICAL PATCH TP SCH (10:19)
[2021-04-04] MEDS: lamoTRIgine 25 MG TABLET PO SCH (10:19)
[2021-04-04] MEDS: hydrOXYzine PAMOATE 25 MG CAPSULE (FP) PO PRN (10:20)
[2021-04-04] MEDS: THIAMINE HCL 100 MG TABLET (FP) PO SCH (21:43)
[2021-04-04] MEDS: QUEtiapine FUMARATE 100 MG TABLET (FP) PO SCH (21:43)
[2021-04-04] MEDS: SUVOREXANT 10 MG TABLET PO PRN (21:44)
[2021-04-04] MEDS: MIRTAZAPINE 15 MG TABLET (FP) PO SCH (21:44)
[2021-04-04] MEDS: LIDOCAINE PATCH REMOVAL MC SCH (21:45)
[2021-04-04] MEDS: METHYL SALICYLATE/MENTHOL OINT 30 GM TUBE TP SCH (21:45)
[2021-04-04] MEDS: MELATONIN 5 MG TABLETS PO SCH (21:45)
[2021-04-05] MEDS ORDERED: methaDONE HCL 10 MG TABLET ONE (03:09)
[2021-04-05] MEDS ORDERED: methaDONE HCL 40 MG DISPERSABLE TABLET ONE (03:09)
[2021-04-05] MEDS: methaDONE 40 MG, methaDONE 10 MG PO SCH (06:50)
[2021-04-05] MEDS: METHOCARBAMOL 500 MG TABLET PO PRN ×4 (06:50→21:20)
[2021-04-05] MEDS: PRENATAL VITAMINS W/ FOLIC ACID TABLET (FP) PO SCH (10:16)
[2021-04-05] MEDS: hydrOXYzine PAMOATE 25 MG CAPSULE (FP) PO PRN ×2 (10:16→21:20)
[2021-04-05] MEDS: GABAPENTIN 300 MG CAPSULE PO SCH ×2 (10:16→21:20)
[2021-04-05] MEDS: lamoTRIgine 25 MG TABLET PO SCH (10:17)
[2021-04-05] MEDS: LIDOCAINE 5% TOPICAL PATCH TP SCH (10:17)
[2021-04-05] MEDS: NICOTINE 10 MG CARTRIDGE (INHALER) IH PRN ×2 (10:17→21:22)
[2021-04-05] MEDS: NICOTINE 7 MG/24 HOURS TOPICAL PATCH TD SCH (10:17)
[2021-04-05] MEDS: VITAMINS A AND D TOPICAL OINTMENT 60 GM TUBE TP SCH ×2 (13:40→18:07)
[2021-04-05] MEDS: THIAMINE HCL 100 MG TABLET (FP) PO SCH (21:20)
[2021-04-05] MEDS: QUEtiapine FUMARATE 100 MG TABLET (FP) PO SCH (21:20)
[2021-04-05] MEDS: SUVOREXANT 10 MG TABLET PO PRN (21:21)
[2021-04-05] MEDS: METHYL SALICYLATE/MENTHOL OINT 30 GM TUBE TP SCH (22:13)
[2021-04-05] MEDS: MIRTAZAPINE 15 MG TABLET (FP) PO SCH (22:14)
[2021-04-05] MEDS: MELATONIN 5 MG TABLETS PO SCH (22:18)
[2021-04-05] MEDS: LIDOCAINE PATCH REMOVAL MC SCH (22:18)
[2021-04-06] MEDS ORDERED: methaDONE HCL 10 MG TABLET ONE (03:24)
[2021-04-06] MEDS ORDERED: methaDONE HCL 40 MG DISPERSABLE TABLET ONE (03:24)
[2021-04-06] MEDS: VITAMINS A AND D TOPICAL OINTMENT 60 GM TUBE TP SCH ×4 (06:26→18:43)
[2021-04-06] MEDS: METHOCARBAMOL 500 MG TABLET PO PRN ×4 (06:27→21:29)
[2021-04-06] MEDS: methaDONE 40 MG, methaDONE 10 MG PO SCH (06:27)
[2021-04-06] MEDS ORDERED: PT OWN MED DRAWER 7, Y5N ONE ×2 (08:37→19:47)
[2021-04-06] MEDS: NICOTINE 10 MG CARTRIDGE (INHALER) IH PRN ×3 (09:42→23:13)
[2021-04-06] MEDS: NICOTINE 7 MG/24 HOURS TOPICAL PATCH TD SCH (09:42)
[2021-04-06] MEDS: LIDOCAINE 5% TOPICAL PATCH TP SCH (09:42)
[2021-04-06] MEDS: GABAPENTIN 300 MG CAPSULE PO SCH ×2 (09:42→21:29)
[2021-04-06] MEDS: hydrOXYzine PAMOATE 25 MG CAPSULE (FP) PO PRN (09:42)
[2021-04-06] MEDS: PRENATAL VITAMINS W/ FOLIC ACID TABLET (FP) PO SCH (09:42)
[2021-04-06] MEDS: lamoTRIgine 25 MG TABLET PO SCH (09:44)
[2021-04-06] MEDS: SUVOREXANT 10 MG TABLET PO PRN (21:28)
[2021-04-06] MEDS: THIAMINE HCL 100 MG TABLET (FP) PO SCH (21:29)
[2021-04-06] MEDS: QUEtiapine FUMARATE 100 MG TABLET (FP) PO SCH (21:29)
[2021-04-06] MEDS: MIRTAZAPINE 15 MG TABLET (FP) PO SCH (21:29)
[2021-04-06] MEDS: MELATONIN 5 MG TABLETS PO SCH (21:31)
[2021-04-06] MEDS: LIDOCAINE PATCH REMOVAL MC SCH (21:31)
[2021-04-06] MEDS: METHYL SALICYLATE/MENTHOL OINT 30 GM TUBE TP SCH (21:31)
[2021-04-07] MEDS: VITAMINS A AND D TOPICAL OINTMENT 60 GM TUBE TP SCH ×4 (00:32→19:09)
[2021-04-07] MEDS ORDERED: methaDONE HCL 10 MG TABLET ONE (03:13)
[2021-04-07] MEDS ORDERED: methaDONE HCL 40 MG DISPERSABLE TABLET ONE (03:13)
[2021-04-07] MEDS: methaDONE 40 MG, methaDONE 10 MG PO SCH (06:23)
[2021-04-07] MEDS: METHOCARBAMOL 500 MG TABLET PO PRN ×3 (06:23→18:10)
[2021-04-07] MEDS ORDERED: PT OWN MED DRAWER 7, Y5N ONE (06:55)
[2021-04-07] MEDS: PRENATAL VITAMINS W/ FOLIC ACID TABLET (FP) PO SCH (09:54)
[2021-04-07] MEDS: LIDOCAINE 5% TOPICAL PATCH TP SCH (09:54)
[2021-04-07] MEDS: lamoTRIgine 25 MG TABLET PO SCH (09:54)
[2021-04-07] MEDS: GABAPENTIN 300 MG CAPSULE PO SCH ×2 (09:54→21:21)
[2021-04-07] MEDS: NICOTINE 7 MG/24 HOURS TOPICAL PATCH TD SCH (09:54)
[2021-04-07] MEDS: hydrOXYzine PAMOATE 25 MG CAPSULE (FP) PO PRN ×2 (09:55→18:10)
[2021-04-07] MEDS: NICOTINE 10 MG CARTRIDGE (INHALER) IH PRN ×2 (12:09→21:22)
[2021-04-07] MEDS: METHYL SALICYLATE/MENTHOL OINT 30 GM TUBE TP SCH (21:20)
[2021-04-07] MEDS: LIDOCAINE PATCH REMOVAL MC SCH (21:20)
[2021-04-07] MEDS: MELATONIN 5 MG TABLETS PO SCH (21:21)
[2021-04-07] MEDS: QUEtiapine FUMARATE 100 MG TABLET (FP) PO SCH (21:21)
[2021-04-07] MEDS: MIRTAZAPINE 15 MG TABLET (FP) PO SCH (21:21)
[2021-04-07] MEDS: THIAMINE HCL 100 MG TABLET (FP) PO SCH (21:21)
[2021-04-07] MEDS: SUVOREXANT 10 MG TABLET PO PRN (21:21)
[2021-04-08] MEDS ORDERED: methaDONE HCL 40 MG DISPERSABLE TABLET ONE (04:07)
[2021-04-08] MEDS ORDERED: methaDONE HCL 10 MG TABLET ONE (04:07)
[2021-04-08] MEDS: VITAMINS A AND D TOPICAL OINTMENT 60 GM TUBE TP SCH ×3 (06:03→21:03)
[2021-04-08] MEDS: methaDONE 40 MG, methaDONE 10 MG PO SCH (06:04)
[2021-04-08] MEDS: METHOCARBAMOL 500 MG TABLET PO PRN ×3 (06:05→21:16)
[2021-04-08] MEDS: lamoTRIgine 25 MG TABLET PO SCH (09:48)
[2021-04-08] MEDS: PRENATAL VITAMINS W/ FOLIC ACID TABLET (FP) PO SCH (09:48)
[2021-04-08] MEDS: GABAPENTIN 300 MG CAPSULE PO SCH ×2 (09:48→21:16)
[2021-04-08] MEDS: hydrOXYzine PAMOATE 25 MG CAPSULE (FP) PO PRN ×2 (09:49→21:16)
[2021-04-08] MEDS: NICOTINE 10 MG CARTRIDGE (INHALER) IH PRN ×2 (09:49→21:20)
[2021-04-08] MEDS: NICOTINE 7 MG/24 HOURS TOPICAL PATCH TD SCH (09:49)
[2021-04-08] MEDS: LIDOCAINE 5% TOPICAL PATCH TP SCH (09:49)
[2021-04-08] MEDS: THIAMINE HCL 100 MG TABLET (FP) PO SCH (21:16)
[2021-04-08] MEDS: MELATONIN 5 MG TABLETS PO SCH (21:16)
[2021-04-08] MEDS: SUVOREXANT 10 MG TABLET PO PRN (21:17)
[2021-04-08] MEDS: LIDOCAINE PATCH REMOVAL MC SCH (21:18)
[2021-04-08] MEDS: MIRTAZAPINE 15 MG TABLET (FP) PO SCH (21:18)
[2021-04-08] MEDS: METHYL SALICYLATE/MENTHOL OINT 30 GM TUBE TP SCH (21:18)
[2021-04-08] MEDS: QUEtiapine FUMARATE 100 MG TABLET (FP) PO SCH (21:19)
[2021-04-09] MEDS: VITAMINS A AND D TOPICAL OINTMENT 60 GM TUBE TP SCH ×5 (00:55→21:59)
[2021-04-09] MEDS ORDERED: methaDONE HCL 10 MG TABLET ONE (06:26)
[2021-04-09] MEDS ORDERED: methaDONE HCL 40 MG DISPERSABLE TABLET ONE (06:26)
[2021-04-09] MEDS: methaDONE 40 MG, methaDONE 10 MG PO SCH (06:27)
[2021-04-09] MEDS: METHOCARBAMOL 500 MG TABLET PO PRN ×3 (06:27→22:00)
[2021-04-09] MEDS: lamoTRIgine 25 MG TABLET PO SCH (09:38)
[2021-04-09] MEDS: NICOTINE 7 MG/24 HOURS TOPICAL PATCH TD SCH (09:38)
[2021-04-09] MEDS: LIDOCAINE 5% TOPICAL PATCH TP SCH (09:38)
[2021-04-09] MEDS: PRENATAL VITAMINS W/ FOLIC ACID TABLET (FP) PO SCH (09:38)
[2021-04-09] MEDS: GABAPENTIN 300 MG CAPSULE PO SCH ×2 (09:38→21:59)
[2021-04-09] MEDS: NICOTINE 10 MG CARTRIDGE (INHALER) IH PRN ×2 (09:38→22:01)
[2021-04-09] MEDS: MELATONIN 5 MG TABLETS PO SCH (21:59)
[2021-04-09] MEDS: METHYL SALICYLATE/MENTHOL OINT 30 GM TUBE TP SCH (21:59)
[2021-04-09] MEDS: LIDOCAINE PATCH REMOVAL MC SCH (21:59)
[2021-04-09] MEDS: QUEtiapine FUMARATE 100 MG TABLET (FP) PO SCH (21:59)
[2021-04-09] MEDS: THIAMINE HCL 100 MG TABLET (FP) PO SCH (22:00)
[2021-04-09] MEDS: MIRTAZAPINE 15 MG TABLET (FP) PO SCH (22:00)
[2021-04-09] MEDS: SUVOREXANT 10 MG TABLET PO PRN (22:00)
[2021-04-10] MEDS: VITAMINS A AND D TOPICAL OINTMENT 60 GM TUBE TP SCH ×4 (02:35→18:50)
[2021-04-10] MEDS ORDERED: methaDONE HCL 10 MG TABLET ONE (03:26)
[2021-04-10] MEDS ORDERED: methaDONE HCL 40 MG DISPERSABLE TABLET ONE (03:26)
[2021-04-10] MEDS: methaDONE 40 MG, methaDONE 10 MG PO SCH (06:20)
[2021-04-10] MEDS: METHOCARBAMOL 500 MG TABLET PO PRN ×3 (06:20→21:33)
[2021-04-10] MEDS: PRENATAL VITAMINS W/ FOLIC ACID TABLET (FP) PO SCH (09:39)
[2021-04-10] MEDS: LIDOCAINE 5% TOPICAL PATCH TP SCH (09:39)
[2021-04-10] MEDS: GABAPENTIN 300 MG CAPSULE PO SCH ×2 (09:40→21:33)
[2021-04-10] MEDS: lamoTRIgine 25 MG TABLET PO SCH (09:40)
[2021-04-10] MEDS: NICOTINE 7 MG/24 HOURS TOPICAL PATCH TD SCH (09:40)
[2021-04-10] MEDS: NICOTINE 10 MG CARTRIDGE (INHALER) IH PRN ×2 (09:40→21:34)
[2021-04-10] MEDS: hydrOXYzine PAMOATE 25 MG CAPSULE (FP) PO PRN (09:41)
[2021-04-10] MEDS: THIAMINE HCL 100 MG TABLET (FP) PO SCH (21:32)
[2021-04-10] MEDS: QUEtiapine FUMARATE 100 MG TABLET (FP) PO SCH (21:33)
[2021-04-10] MEDS: MIRTAZAPINE 15 MG TABLET (FP) PO SCH (21:33)
[2021-04-10] MEDS: LIDOCAINE PATCH REMOVAL MC SCH (21:34)
[2021-04-10] MEDS: METHYL SALICYLATE/MENTHOL OINT 30 GM TUBE TP SCH (21:34)
[2021-04-10] MEDS ORDERED: SUVOREXANT 10 MG TABLET PO PRN (22:00)
[2021-04-11] MEDS: VITAMINS A AND D TOPICAL OINTMENT 60 GM TUBE TP SCH ×2 (00:58→06:44)
[2021-04-11] MEDS ORDERED: methaDONE HCL 10 MG TABLET ONE (03:05)
[2021-04-11] MEDS ORDERED: methaDONE HCL 40 MG DISPERSABLE TABLET ONE (03:06)
[2021-04-11] MEDS ORDERED: PT OWN MED DRAWER 7, Y5N ONE ×2 (03:08→07:43)
[2021-04-11] MEDS: methaDONE 40 MG, methaDONE 10 MG PO SCH (06:44)
[2021-04-11] MEDS: METHOCARBAMOL 500 MG TABLET PO PRN (06:44)
[2021-04-11 06:57] VITALS: BP 131/80; PULSE 74; TEMP 97.1
[2021-04-11] MEDS: GABAPENTIN 300 MG CAPSULE PO SCH (09:22)
[2021-04-11] MEDS: PRENATAL VITAMINS W/ FOLIC ACID TABLET (FP) PO SCH (09:22)
[2021-04-11] MEDS: lamoTRIgine 25 MG TABLET PO SCH (09:22)
[2021-04-11] MEDS: LIDOCAINE 5% TOPICAL PATCH TP SCH (09:23)
[2021-04-11] MEDS: NICOTINE 7 MG/24 HOURS TOPICAL PATCH TD SCH (09:23)
[2021-04-11] MEDS: hydrOXYzine PAMOATE 25 MG CAPSULE (FP) PO PRN (09:24)
== END 2021-04-11 09:40 | disposition home or self-care (01) | DRG 772 ==
LOC: YASAS 15:30 → Y5N 15:31 → Y3E 04-04 14:19 → Y5N 04-04 14:39
PROVIDERS: ADMIT Allergy & Immunology; ATTEND Allergy & Immunology
PROC: HZ42ZZZ Group Counseling for Substance Abuse Treatment, Cognitive-Behavioral (ICD-10-PCS; principal; 2021-03-25)
DX: F10.20 Alcohol dependence, uncomplicated (principal); F11.20 Opioid dependence, uncomplicated; F14.20 Cocaine dependence, uncomplicated; F13.20 Sedative, hypnotic or anxiolytic dependence, uncomplicated; F12.20 Cannabis dependence, uncomplicated; F17.210 Nicotine dependence, cigarettes, uncomplicated; G40.909 Epilepsy, unspecified, not intractable, without status epilepticus; L98.9 Disorder of the skin and subcutaneous tissue, unspecified; B18.2 Chronic viral hepatitis C; M54.50 Low back pain, unspecified; M25.561 Pain in right knee; M25.562 Pain in left knee; Z59.00 Homelessness unspecified; Z91.013 Allergy to seafood

== ENCOUNTER 2022-03-18 13:33 | Inpatient (IN) | payer OTHER ==
[2022-03-18 16:04] VITALS: BMI 21.1
[2022-03-18] MEDS ORDERED: ONDANSETRON *ODT* 4 MG TABLET SL PRN (19:38)
[2022-03-18] MEDS ORDERED: ACETAMINOPHEN 325 MG TABLET (FP) PO PRN ×2 (19:38)
[2022-03-18] MEDS ORDERED: IBUPROFEN 400 MG TABLET (FP) PO PRN (19:38)
[2022-03-18] MEDS ORDERED: NICOTINE POLACRILEX 2 MG GUM BUC PRN (19:38)
[2022-03-18] MEDS ORDERED: MAGNESIUM HYDROX 2400MG/30ML ORAL SUSPENSION 30 ML CUP PO PRN (19:38)
[2022-03-18] MEDS ORDERED: MAGNESIUM CITRATE 300 ML BOTTLE PO PRN (19:38)
[2022-03-18] MEDS ORDERED: BENZOCAINE/MENTHOL (CHLORASEPTIC ) LOZENGE MM PRN (19:38)
[2022-03-18] MEDS ORDERED: LOPERAMIDE HCL 2 MG CAPSULE PO PRN (19:38)
[2022-03-18] MEDS ORDERED: NALOXONE HCL (KLOXXADO) 8 MG SPRAY NS PRN (19:38)
[2022-03-18] MEDS ORDERED: BISMUTH SUBSALICYLATE 524 MG/30 ML PO PRN (19:38)
[2022-03-18] MEDS: PRENATAL VITAMINS W/ FOLIC ACID TABLET (FP) PO SCH (21:03)
[2022-03-18] MEDS: THIAMINE HCL 100 MG TABLET (FP) PO SCH (21:06)
[2022-03-18] MEDS: hydrOXYzine PAMOATE 25 MG CAPSULE (FP) PO SCH (21:06)
[2022-03-18] MEDS: DICYCLOMINE HCL 10 MG CAPSULE PO PRN (21:06)
[2022-03-18] MEDS: METHOCARBAMOL 500 MG TABLET PO PRN (21:06)
[2022-03-18] MEDS: chlordiazePOXIDE HCL 25 MG CAPSULE PO SCH (21:07)
[2022-03-18] MEDS ORDERED: MELATONIN 5 MG TABLETS PO SCH (22:00)
[2022-03-19] MEDS: chlordiazePOXIDE HCL 25 MG CAPSULE PO SCH ×5 (00:04→23:32)
[2022-03-19] MEDS: MAG HYDROX/AL HYDROX/SIMETH 30 ML UNIT-DOSE CUP PO PRN ×2 (02:47→23:14)
[2022-03-19] MEDS: chlordiazePOXIDE HCL 25 MG CAPSULE PO PRN (03:23)
[2022-03-19] MEDS: METHOCARBAMOL 500 MG TABLET PO PRN ×2 (05:02→10:29)
[2022-03-19] MEDS: hydrOXYzine PAMOATE 25 MG CAPSULE (FP) PO SCH ×5 (05:02→23:32)
[2022-03-19] MEDS ORDERED: methaDONE HCL 10 MG TABLET PO SCH (07:00)
[2022-03-19] MEDS: IBUPROFEN 600 MG TABLET (FP) PO PRN (07:25)
[2022-03-19] MEDS: DICYCLOMINE HCL 10 MG CAPSULE PO PRN (07:27)
[2022-03-19] MEDS: PRENATAL VITAMINS W/ FOLIC ACID TABLET (FP) PO SCH (10:27)
[2022-03-19] MEDS: lamoTRIgine 25 MG TABLET PO SCH (10:28)
[2022-03-19 11:36] LABS: HEMATOCRIT 38.6 % (35.4-49); HEMOGLOBIN 12.7 GM/dL (11.7-16.9); MCH 31.8 pg (25.7-33.7); MEAN CELL VOLUME 96.4 fl (80-96); MEAN PLT VOLUME 9.2 fl (7.5-11.1); PLATELET COUNT 237 10^3/uL (134-434); RBC 4.01 M/mm3 (4.00-5.60); RDW 13.1 % (11.9-15.9); WHITE BLOOD COUNT 4.7 K/mm3 (4.0-10.0)
[2022-03-19 12:33] LABS: CALCIUM 9.7 mg/dL (8.5-10.1)
[2022-03-19 12:34] LABS: BLOOD UREA NITROGEN 15.4 mg/dL (7-18)
[2022-03-19 12:37] LABS: CREATININE 0.8 mg/dL (0.55-1.3)
[2022-03-19 12:38] LABS: BILIRUBIN,TOTAL 1.1 mg/dL (0.2-1); TOT PROT 7.2 g/dl (6.4-8.2)
[2022-03-19] MEDS: GABAPENTIN 300 MG CAPSULE PO SCH ×2 (13:02→22:32)
[2022-03-19] MEDS: traZODone HCL 100 MG TABLET (FP) PO SCH (22:32)
[2022-03-19] MEDS: QUEtiapine FUMARATE 100 MG TABLET (FP) PO SCH (22:32)
[2022-03-19] MEDS: THIAMINE HCL 100 MG TABLET (FP) PO SCH (22:33)
[2022-03-19] MEDS: SUVOREXANT 10 MG TABLET PO PRN (22:36)
[2022-03-19] MEDS: NICOTINE 10 MG CARTRIDGE (INHALER) IH PRN (23:16)
[2022-03-20] MEDS: chlordiazePOXIDE HCL 25 MG CAPSULE PO PRN (00:24)
[2022-03-20] MEDS: DICYCLOMINE HCL 10 MG CAPSULE PO PRN (01:06)
[2022-03-20] MEDS ORDERED: hydrOXYzine PAMOATE 25 MG CAPSULE (FP) PO ONE (02:06)
[2022-03-20] MEDS: IBUPROFEN 600 MG TABLET (FP) PO PRN (02:32)
[2022-03-20] MEDS: METHOCARBAMOL 500 MG TABLET PO PRN ×3 (02:32→16:59)
[2022-03-20] MEDS ORDERED: methaDONE HCL 40 MG DISPERSABLE TABLET PO ONE (06:00)
[2022-03-20] MEDS: GABAPENTIN 300 MG CAPSULE PO SCH ×3 (06:29→22:20)
[2022-03-20] MEDS: hydrOXYzine PAMOATE 25 MG CAPSULE (FP) PO SCH ×5 (06:29→22:20)
[2022-03-20] MEDS: chlordiazePOXIDE HCL 25 MG CAPSULE PO SCH ×4 (06:31→22:20)
[2022-03-20] MEDS: lamoTRIgine 25 MG TABLET PO SCH (09:58)
[2022-03-20] MEDS: PRENATAL VITAMINS W/ FOLIC ACID TABLET (FP) PO SCH (09:58)
[2022-03-20] MEDS: THIAMINE HCL 100 MG TABLET (FP) PO SCH (22:20)
[2022-03-20] MEDS: QUEtiapine FUMARATE 100 MG TABLET (FP) PO SCH (22:20)
[2022-03-20] MEDS: SUVOREXANT 10 MG TABLET PO PRN (22:25)
[2022-03-20] MEDS: traZODone HCL 100 MG TABLET (FP) PO SCH (23:59)
[2022-03-21] MEDS ORDERED: chlordiazePOXIDE HCL 10 MG CAPSULE PO PRN
[2022-03-21] MEDS: GABAPENTIN 300 MG CAPSULE PO SCH ×3 (05:33→22:10)
[2022-03-21] MEDS: methaDONE 40 MG, methaDONE 10 MG PO SCH (05:33)
[2022-03-21] MEDS: chlordiazePOXIDE HCL 10 MG CAPSULE PO SCH ×4 (05:34→22:51)
[2022-03-21] MEDS: hydrOXYzine PAMOATE 25 MG CAPSULE (FP) PO SCH ×5 (05:34→22:51)
[2022-03-21] MEDS ORDERED: methaDONE HCL 10 MG TABLET PO SCH (06:00)
[2022-03-21] MEDS: NICOTINE 10 MG CARTRIDGE (INHALER) IH PRN (09:04)
[2022-03-21] MEDS: PRENATAL VITAMINS W/ FOLIC ACID TABLET (FP) PO SCH (10:41)
[2022-03-21] MEDS: METHOCARBAMOL 500 MG TABLET PO PRN ×2 (10:42→17:38)
[2022-03-21] MEDS: lamoTRIgine 25 MG TABLET PO SCH (10:45)
[2022-03-21] MEDS: QUEtiapine FUMARATE 100 MG TABLET (FP) PO SCH (22:09)
[2022-03-21] MEDS: THIAMINE HCL 100 MG TABLET (FP) PO SCH (22:10)
[2022-03-21] MEDS: traZODone HCL 100 MG TABLET (FP) PO SCH (22:10)
[2022-03-21] MEDS: SUVOREXANT 10 MG TABLET PO PRN (22:12)
[2022-03-22] MEDS: hydrOXYzine PAMOATE 25 MG CAPSULE (FP) PO SCH ×5 (05:30→22:12)
[2022-03-22] MEDS: chlordiazePOXIDE HCL 10 MG CAPSULE PO SCH ×2 (05:30→17:33)
[2022-03-22] MEDS: methaDONE 40 MG, methaDONE 10 MG PO SCH (05:30)
[2022-03-22] MEDS: GABAPENTIN 300 MG CAPSULE PO SCH ×3 (05:30→22:12)
[2022-03-22] MEDS: METHOCARBAMOL 500 MG TABLET PO PRN ×3 (05:47→22:15)
[2022-03-22] MEDS: NICOTINE 10 MG CARTRIDGE (INHALER) IH PRN (05:48)
[2022-03-22] MEDS: lamoTRIgine 25 MG TABLET PO SCH (10:25)
[2022-03-22] MEDS: PRENATAL VITAMINS W/ FOLIC ACID TABLET (FP) PO SCH (10:25)
[2022-03-22] MEDS: traZODone HCL 100 MG TABLET (FP) PO SCH (22:11)
[2022-03-22] MEDS: THIAMINE HCL 100 MG TABLET (FP) PO SCH (22:11)
[2022-03-22] MEDS: QUEtiapine FUMARATE 100 MG TABLET (FP) PO SCH (22:12)
[2022-03-23] MEDS ORDERED: chlordiazePOXIDE HCL 10 MG CAPSULE PO ONE (05:00)
[2022-03-23] MEDS: methaDONE 40 MG, methaDONE 10 MG PO SCH (05:38)
[2022-03-23] MEDS: GABAPENTIN 300 MG CAPSULE PO SCH (05:39)
[2022-03-23] MEDS: hydrOXYzine PAMOATE 25 MG CAPSULE (FP) PO SCH ×2 (05:39→10:19)
[2022-03-23 09:26] VITALS: RESP 18
[2022-03-23] MEDS: METHOCARBAMOL 500 MG TABLET PO PRN (10:19)
[2022-03-23] MEDS: PRENATAL VITAMINS W/ FOLIC ACID TABLET (FP) PO SCH (10:19)
[2022-03-23] MEDS: lamoTRIgine 25 MG TABLET PO SCH (10:19)
[2022-03-23] MEDS: NICOTINE 10 MG CARTRIDGE (INHALER) IH PRN (10:21)
[2022-03-23 12:58] VITALS: BP 113/65; PULSE 59; TEMP 98.1
== END 2022-03-23 12:45 | disposition other institution (70) | DRG 773 ==
LOC: YASAS 13:33 → Y6N 18:30
PROVIDERS: ADMIT Allergy & Immunology; ATTEND Surgery
PROC: HZ2ZZZZ Detoxification Services for Substance Abuse Treatment (ICD-10-PCS; principal; 2022-03-18)
DX: F11.23 Opioid dependence with withdrawal (principal); F10.230 Alcohol dependence with withdrawal, uncomplicated; F14.20 Cocaine dependence, uncomplicated; F13.20 Sedative, hypnotic or anxiolytic dependence, uncomplicated; F17.210 Nicotine dependence, cigarettes, uncomplicated; F19.282 Other psychoactive substance dependence with psychoactive substance-induced sleep disorder; F19.280 Other psychoactive substance dependence with psychoactive substance-induced anxiety disorder; M54.30 Sciatica, unspecified side; S09.90XA Unspecified injury of head, initial encounter; W06.XXXA Fall from bed, initial encounter; Y92.230 Patient room in hospital as the place of occurrence of the external cause; Z86.69 Personal history of other diseases of the nervous system and sense organs; Z86.19 Personal history of other infectious and parasitic diseases; Z91.013 Allergy to seafood
CPT/HCPCS: 36415; 80053; 84132; 84450; 84460; 85027; 86780; 87811; C9803-CS; U0003; U0005

== ENCOUNTER 2022-03-23 12:47 | Inpatient (IN) | payer OTHER ==
[2022-03-23] MEDS ORDERED: BENZOCAINE/MENTHOL (CHLORASEPTIC ) LOZENGE MM PRN (13:59)
[2022-03-23] MEDS ORDERED: LOPERAMIDE HCL 2 MG CAPSULE PO PRN (13:59)
[2022-03-23] MEDS ORDERED: MAGNESIUM CITRATE 300 ML BOTTLE PO PRN (13:59)
[2022-03-23] MEDS ORDERED: MAG HYDROX/AL HYDROX/SIMETH 30 ML UNIT-DOSE CUP PO PRN (13:59)
[2022-03-23] MEDS ORDERED: P-EPHED 60MG/TRIPROLIDI 2.5MG TABLET PO PRN (13:59)
[2022-03-23] MEDS ORDERED: MAGNESIUM HYDROX 2400MG/30ML ORAL SUSPENSION 30 ML CUP PO PRN (13:59)
[2022-03-23] MEDS ORDERED: ACETAMINOPHEN 325 MG TABLET (FP) PO PRN (13:59)
[2022-03-23] MEDS ORDERED: IBUPROFEN 400 MG TABLET (FP) PO PRN (13:59)
[2022-03-23] MEDS ORDERED: guaiFENesin 200 MG/10 ML 10 ML UNIT-DOSE CUPS PO PRN (13:59)
[2022-03-23] MEDS: NICOTINE 7 MG/24 HOURS TOPICAL PATCH TD SCH (15:05)
[2022-03-23] MEDS: PRENATAL VITAMINS W/ FOLIC ACID TABLET (FP) PO SCH (15:05)
[2022-03-23] MEDS: NICOTINE 10 MG CARTRIDGE (INHALER) IH PRN ×2 (15:08→22:24)
[2022-03-23] MEDS: hydrOXYzine PAMOATE 25 MG CAPSULE (FP) PO SCH ×3 (15:08→21:24)
[2022-03-23] MEDS: METHOCARBAMOL 500 MG TABLET PO SCH (21:24)
[2022-03-23] MEDS: MELATONIN 5 MG TABLETS PO SCH (21:24)
[2022-03-23] MEDS: THIAMINE HCL 100 MG TABLET (FP) PO SCH (21:24)
[2022-03-24] MEDS ORDERED: methaDONE HCL 10 MG TABLET PO SCH (06:00)
[2022-03-24] MEDS: hydrOXYzine PAMOATE 25 MG CAPSULE (FP) PO SCH ×5 (06:42→21:24)
[2022-03-24] MEDS: methaDONE 40 MG, methaDONE 10 MG PO SCH (06:43)
[2022-03-24] MEDS: PRENATAL VITAMINS W/ FOLIC ACID TABLET (FP) PO SCH (09:27)
[2022-03-24] MEDS: METHOCARBAMOL 500 MG TABLET PO SCH ×2 (09:27→21:24)
[2022-03-24] MEDS: NICOTINE 7 MG/24 HOURS TOPICAL PATCH TD SCH (09:27)
[2022-03-24] MEDS: NICOTINE 10 MG CARTRIDGE (INHALER) IH PRN (09:29)
[2022-03-24] MEDS: GABAPENTIN 300 MG CAPSULE PO SCH ×2 (13:02→21:24)
[2022-03-24] MEDS: THIAMINE HCL 100 MG TABLET (FP) PO SCH (21:24)
[2022-03-24] MEDS: MELATONIN 5 MG TABLETS PO SCH (21:24)
[2022-03-24] MEDS: QUEtiapine FUMARATE 100 MG TABLET (FP) PO SCH (21:25)
[2022-03-24] MEDS: SUVOREXANT 10 MG TABLET PO PRN (21:25)
[2022-03-24] MEDS: traZODone HCL 100 MG TABLET (FP) PO SCH (21:25)
[2022-03-25] MEDS: GABAPENTIN 300 MG CAPSULE PO SCH ×3 (06:28→21:20)
[2022-03-25] MEDS: methaDONE 40 MG, methaDONE 10 MG PO SCH (06:29)
[2022-03-25] MEDS: hydrOXYzine PAMOATE 25 MG CAPSULE (FP) PO SCH ×6 (06:29→21:21)
[2022-03-25] MEDS: NICOTINE 7 MG/24 HOURS TOPICAL PATCH TD SCH (09:55)
[2022-03-25] MEDS: PRENATAL VITAMINS W/ FOLIC ACID TABLET (FP) PO SCH (09:55)
[2022-03-25] MEDS: METHOCARBAMOL 500 MG TABLET PO SCH (09:55)
[2022-03-25] MEDS: NICOTINE 10 MG CARTRIDGE (INHALER) IH PRN (09:55)
[2022-03-25] MEDS: CYCLOBENZAPRINE HCL 10 MG TABLET (FP) PO SCH ×2 (13:15→21:20)
[2022-03-25] MEDS: traZODone HCL 100 MG TABLET (FP) PO SCH (21:20)
[2022-03-25] MEDS: THIAMINE HCL 100 MG TABLET (FP) PO SCH (21:20)
[2022-03-25] MEDS: MELATONIN 5 MG TABLETS PO SCH (21:20)
[2022-03-25] MEDS: QUEtiapine FUMARATE 100 MG TABLET (FP) PO SCH (21:20)
[2022-03-25] MEDS: SUVOREXANT 10 MG TABLET PO PRN (21:22)
[2022-03-25] MEDS ORDERED: METHOCARBAMOL 500 MG TABLET PO SCH (22:00)
[2022-03-26] MEDS: methaDONE 40 MG, methaDONE 10 MG PO SCH (06:38)
[2022-03-26] MEDS: GABAPENTIN 300 MG CAPSULE PO SCH ×3 (06:39→21:09)
[2022-03-26] MEDS: CYCLOBENZAPRINE HCL 10 MG TABLET (FP) PO SCH ×3 (06:39→21:09)
[2022-03-26] MEDS: hydrOXYzine PAMOATE 25 MG CAPSULE (FP) PO SCH ×5 (06:40→21:11)
[2022-03-26] MEDS: NICOTINE 7 MG/24 HOURS TOPICAL PATCH TD SCH (09:40)
[2022-03-26] MEDS: PRENATAL VITAMINS W/ FOLIC ACID TABLET (FP) PO SCH (09:40)
[2022-03-26] MEDS: NICOTINE 10 MG CARTRIDGE (INHALER) IH PRN ×2 (09:41→21:09)
[2022-03-26] MEDS: THIAMINE HCL 100 MG TABLET (FP) PO SCH (21:09)
[2022-03-26] MEDS: traZODone HCL 100 MG TABLET (FP) PO SCH (21:09)
[2022-03-26] MEDS: MELATONIN 5 MG TABLETS PO SCH (21:09)
[2022-03-26] MEDS: QUEtiapine FUMARATE 100 MG TABLET (FP) PO SCH (21:09)
[2022-03-26] MEDS: SUVOREXANT 10 MG TABLET PO PRN (21:10)
[2022-03-27] MEDS: GABAPENTIN 300 MG CAPSULE PO SCH ×3 (06:34→21:01)
[2022-03-27] MEDS: CYCLOBENZAPRINE HCL 10 MG TABLET (FP) PO SCH ×3 (06:34→21:01)
[2022-03-27] MEDS: methaDONE 40 MG, methaDONE 10 MG PO SCH (06:34)
[2022-03-27] MEDS: hydrOXYzine PAMOATE 25 MG CAPSULE (FP) PO SCH ×5 (06:43→21:01)
[2022-03-27] MEDS: NICOTINE 10 MG CARTRIDGE (INHALER) IH PRN ×2 (09:39→21:02)
[2022-03-27] MEDS: NICOTINE 7 MG/24 HOURS TOPICAL PATCH TD SCH (09:39)
[2022-03-27] MEDS: PRENATAL VITAMINS W/ FOLIC ACID TABLET (FP) PO SCH (09:39)
[2022-03-27] MEDS: THIAMINE HCL 100 MG TABLET (FP) PO SCH (21:01)
[2022-03-27] MEDS: MELATONIN 5 MG TABLETS PO SCH (21:01)
[2022-03-27] MEDS: QUEtiapine FUMARATE 100 MG TABLET (FP) PO SCH (21:01)
[2022-03-27] MEDS: traZODone HCL 100 MG TABLET (FP) PO SCH (21:01)
[2022-03-27] MEDS: SUVOREXANT 10 MG TABLET PO PRN (21:02)
[2022-03-28] MEDS: methaDONE 40 MG, methaDONE 10 MG PO SCH (06:22)
[2022-03-28] MEDS: hydrOXYzine PAMOATE 25 MG CAPSULE (FP) PO SCH (06:22)
[2022-03-28] MEDS: CYCLOBENZAPRINE HCL 10 MG TABLET (FP) PO SCH ×3 (06:23→21:01)
[2022-03-28] MEDS: NICOTINE 10 MG CARTRIDGE (INHALER) IH PRN ×2 (06:24→10:25)
[2022-03-28] MEDS: GABAPENTIN 300 MG CAPSULE PO SCH ×3 (06:38→21:01)
[2022-03-28] MEDS: PRENATAL VITAMINS W/ FOLIC ACID TABLET (FP) PO SCH (10:24)
[2022-03-28] MEDS: NICOTINE 7 MG/24 HOURS TOPICAL PATCH TD SCH (10:25)
[2022-03-28] MEDS: traZODone HCL 100 MG TABLET (FP) PO SCH (21:01)
[2022-03-28] MEDS: QUEtiapine FUMARATE 100 MG TABLET (FP) PO SCH (21:01)
[2022-03-28] MEDS: THIAMINE HCL 100 MG TABLET (FP) PO SCH (21:01)
[2022-03-28] MEDS: MELATONIN 5 MG TABLETS PO SCH (21:01)
[2022-03-28] MEDS: SUVOREXANT 10 MG TABLET PO PRN (21:02)
[2022-03-29] MEDS: CYCLOBENZAPRINE HCL 10 MG TABLET (FP) PO SCH ×3 (06:36→21:00)
[2022-03-29] MEDS: methaDONE 40 MG, methaDONE 10 MG PO SCH (06:36)
[2022-03-29] MEDS: hydrOXYzine PAMOATE 25 MG CAPSULE (FP) PO PRN (06:37)
[2022-03-29] MEDS: GABAPENTIN 300 MG CAPSULE PO SCH ×3 (06:37→21:00)
[2022-03-29] MEDS: NICOTINE 10 MG CARTRIDGE (INHALER) IH PRN ×2 (09:24→13:34)
[2022-03-29] MEDS: PRENATAL VITAMINS W/ FOLIC ACID TABLET (FP) PO SCH (09:24)
[2022-03-29] MEDS: NICOTINE 7 MG/24 HOURS TOPICAL PATCH TD SCH (09:24)
[2022-03-29] MEDS: QUEtiapine FUMARATE 100 MG TABLET (FP) PO SCH (21:00)
[2022-03-29] MEDS: THIAMINE HCL 100 MG TABLET (FP) PO SCH (21:00)
[2022-03-29] MEDS: traZODone HCL 100 MG TABLET (FP) PO SCH (21:00)
[2022-03-29] MEDS: MELATONIN 5 MG TABLETS PO SCH (21:00)
[2022-03-29] MEDS: SUVOREXANT 10 MG TABLET PO PRN (21:01)
[2022-03-30] MEDS: CYCLOBENZAPRINE HCL 10 MG TABLET (FP) PO SCH ×2 (06:20→14:19)
[2022-03-30] MEDS: GABAPENTIN 300 MG CAPSULE PO SCH ×2 (06:20→14:19)
[2022-03-30] MEDS: methaDONE 40 MG, methaDONE 10 MG PO SCH (06:20)
[2022-03-30 07:10] VITALS: BP 129/87; PULSE 86; RESP 18; TEMP 97.8
[2022-03-30] MEDS: hydrOXYzine PAMOATE 25 MG CAPSULE (FP) PO PRN (10:12)
[2022-03-30] MEDS: NICOTINE 7 MG/24 HOURS TOPICAL PATCH TD SCH (10:12)
[2022-03-30] MEDS: PRENATAL VITAMINS W/ FOLIC ACID TABLET (FP) PO SCH (10:12)
[2022-03-31] MEDS ORDERED: methaDONE HCL 40 MG DISPERSABLE TABLET PO SCH (06:00)
[2022-03-31] MEDS ORDERED: methaDONE 40 MG, methaDONE 10 MG PO SCH (06:00)
== END 2022-03-30 18:10 | disposition left against medical advice (07) | DRG 770 ==
LOC: YASAS 12:47 → Y3W 12:48
PROVIDERS: ADMIT Allergy & Immunology; ATTEND Psychiatry & Neurology Pain Medicine
PROC: HZ42ZZZ Group Counseling for Substance Abuse Treatment, Cognitive-Behavioral (ICD-10-PCS; principal; 2022-03-23)
DX: F10.20 Alcohol dependence, uncomplicated (principal); F11.20 Opioid dependence, uncomplicated; F13.20 Sedative, hypnotic or anxiolytic dependence, uncomplicated; F20.9 Schizophrenia, unspecified; F31.9 Bipolar disorder, unspecified; F41.9 Anxiety disorder, unspecified; F41.0 Panic disorder [episodic paroxysmal anxiety]